=== PATIENT | male | born 1970 | race Caucasian/White ===

== ENCOUNTER 2017-10-14 00:18 | Emergency (ER) | payer OTHER ==
[~2017-10-14] VITALS: Ht 182.9 cm; Wt 157.0 kg
[2017-10-14 00:26] VITALS: TEMP 36.8; Ht 182.9 cm; Wt 157.0 kg
[2017-10-14] MEDS ORDERED: AMOXICILLIN/CLAVULANATE TAB 875 MG TAB PO STA ×2 (00:48)
[2017-10-14] MEDS ORDERED: AMOX875T PO (00:52)
[2017-10-14] MEDS ORDERED: OXYC-57 PO (00:52)
--- NOTE | 2017-10-14 00:59 | EMERGENCY ROOM VISIT NOTE ---
History Report prepared by Marlon: Carmine Cerda Under the Supervision of: Dr. Montana Byrd M.D. First contact with patient: 00:30 Chief Complaint: FINGER PAIN Stated Complaint: SORE FINGER History of Present Illness The patient is a 47 year old male who presents to the Emergency Room with complaints of worsening right fourth finger digit pain starting last night. The patient states that the finger has an eczema blister on it, and he thinks that it got an infection. He states that he is not able to bend it since it makes the pain worse, and he notes that he did not have his finger in anyone's mouth recently. Source of History: patient Onset: last night Position: finger(s) (right fourth finger) Timing: worsening Modifying Factors (Worsening): movement Review of Systems See HPI for pertinent positives & negatives. A total of 10 systems reviewed and were otherwise negative. Past Medical & Surgical Medical Problems: (1) Eczema Social History Smoking Status: Never Smoker Marital Status: Housing Status: lives with family Current/Historical Medications Scheduled Amlodipine (Norvasc), 2.5 MG PO DAILY Amoxicillin & Pot Clavulanate (Augmentin 875-125 mg), 1 TAB PO BID Atorvastatin (Lipitor), 20 MG PO DAILY Hctz/Losartan (Hyzaar 25MG/100MG), 1 TAB PO DAILY Lansoprazole (Prevacid), 30 MG PO DAILY Methylphenidate (Ritalin), 2 TAB PO BID Venlafaxine Hcl (Venlafaxine Extended Rel), 75 MG PO DAILY Scheduled PRN Oxycodone/Acetaminophen 5MG/325MG (Percocet 5MG/325MG), 1-2 TAB PO Q4H PRN for Pain Allergies Coded Allergies: No Known Allergies (Unverified , 10/14/17) Physical Exam Vital Signs Date Time Temp Pulse Resp B/P (MAP) Pulse Ox O2 Delivery O2 Flow Rate FiO2 10/14/17 01:22 91 20 155/97 95 10/14/17 00:26 36.8 74 20 138/95 98 Room Air Physical Exam GENERAL: Patient is a healthy-appearing well-nourished male HEAD: Normocephalic atraumatic EYES: Ocular movements intact pupils equal and react to light OROPHARYNX mucous membranes are moist no exudates present no erythema or edema present NECK: Supple no nuchal rigidity CHEST: Good equal expansion LUNGS: Clear and equal to auscultation CARDIAC: Normal S1 and S2 ABDOMEN: Soft nontender no guarding BACK: No CVA tenderness EXTREMITIES: Two puncture wounds to his fourth right finger that he is calling eczema. Finger is swollen. He is able to bend it. No evidence of toxic tenosynovitis on exam. Normal muscle strength in all groups no clubbing cyanosis or edema NEURO: Patient is following commands and answering questions appropriately. Alert and oriented x3 Cranial Nerves 2-12 grossly intact Medical Decision & Procedures ER Provider Diagnostic Interpretation: X-ray results as stated below per interpretation by me: 3 view of the right fourth finger: No evidence of fracture, dislocation, and subluxation. Soft tissue swelling is present. Medications Administered Medications (Trade) Dose Ordered Sig/Carlos Route Start Time Stop Time Status Last Admin Dose Admin Amoxicillin/ Clavulanate Potassium (Augmentin Tab) 875 mg NOW STAT PO 10/14/17 00:48 10/14/17 00:50 DC 10/14/17 01:13 875 MG Amoxicillin/ Clavulanate Potassium (Augmentin Tab) 875 mg NOW STAT PO 10/14/17 00:48 10/14/17 00:50 DC 10/14/17 01:13 875 MG Oxycodone/ Acetaminophen (Percocet 5/ 325MG Home Pack) 1 homepack UD ONCE PO 10/14/17 01:00 10/14/17 01:01 DC 10/14/17 01:13 1 HOMEPACK ED Course 0030: Past medical records reviewed. The patient was evaluated in room C11. A complete history and physical examination was performed. 0048: Augmentin Tab 875mg PO x2. 0100: Oxycodone/ Acetaminophen Home Pack PO 0115: Upon reexamination the patient is doing well. I discussed results and treatment plan with the patient. He verbalizes agreement and understanding. The patient is ready for discharge. Medical Decision Differential diagnosis: Etiologies such as cellulitis, abscess, MRSA infection, DVT, necrotizing fasciitis, dermatitis, drug eruption, as well as others were entertained. This is a 47-year-old male presents emergency department complaining of worsening finger pain. The patient has no evidence of tenosynovitis on exam. He will be placed on Augmentin. His x-rays do not show any evidence of fracture dislocation or subluxation. He was given ibuprofen as well as Percocet for the pain. The patient is not from this area and I stressed the need for follow-up with orthopedics at home or return to the emergency department if he had worsening pain in his finger. Patient was in agreement with the treatment plan. Medication Reconcilliation Current Medication List: was personally reviewed by me Blood Pressure Screening Patient's blood pressure: Elevated blood pressure Blood pressure disposition: Elevated BP felt to be situational Impression Primary Impression: Cellulitis of finger of right hand Scribe Attestation The scribe's documentation has been prepared under my direction and personally reviewed by me in its entirety. I confirm that the note above accurately reflects all work, treatment, procedures, and medical decision making performed by me. Departure Information Dispostion Home / Self-Care Prescriptions Oxycodone/Acetaminophen 5MG/325MG (PERCOCET 5MG/325MG) Tab 1-2 TAB PO Q4H Y for Pain, #14 TAB Prov: Montana Byrd MD 10/14/17 Amoxicillin & Pot Clavulanate (Augmentin 875-125 mg) 1 Tab Tab 1 TAB PO BID for 10 Days, #20 TAB Prov: Montana Byrd MD 10/14/17 Referrals No Doctor, Assigned (PCP) Forms HOME CARE DOCUMENTATION FORM, IMPORTANT VISIT INFORMATION, WORK / SCHOOL INSTRUCTIONS Patient Instructions Cellulitis - [facility], [facility] Additional Instructions Need close follow up with ortho at home, sy if not improving within 48 hours Take 600 mg Ibuprofen every 6 hours Take Percocet for breakthrough pain You have been examined and treated today on an emergency basis only. This is not a substitute for, or an effort to provide, complete comprehensive medical care. It is impossible to recognize and treat all injuries or illnesses in a single emergency department visit. It is therefore important that you follow up closely with your PCP. Call as soon as possible for an appointment. Thank you for your time and consideration. I look forward to speaking with you again soon. Please don't hesitate to call us if you have any questions.
[2017-10-14] MEDS ORDERED: PERCOCET HOME PACK PO ONE (01:00)
[2017-10-14 01:22] VITALS: BP 155/97; PULSE 91; O2SAT 95
--- NOTE | 2017-10-14 06:19 | DIAGNOSTIC IMAGING REPORT ---
R FINGER(S) MIN 2 VIEWS ROUTINE CLINICAL HISTORY: Pt c/o Rt 4th finger pain COMPARISON: None. DISCUSSION: Small cortical fracture base middle phalanx. This is seen only on the lateral projection. Age is uncertain. AP projection suggests a old fracture of the tuft of the distal phalanx. Generalized soft tissue edema. No evidence of dislocation. IMPRESSION: 1. Old cortical fracture tuft distal phalanx. 2. Small avulsion base middle phalanx of uncertain age. 3. Soft tissue edema. The above report was generated using voice recognition software. It may contain grammatical, syntax or spelling errors. Electronically signed by: Jasper Green M.D. 10/14/2017 6:18 AM Dictated Date/Time: 10/14/2017 6:16 AM
[2017-10-14] MEDS ORDERED: LANS30CA12 PO (14:20)
[2017-10-14] MEDS ORDERED: HYZ/10015 PO (14:20)
[2017-10-14] MEDS ORDERED: ATOR-22 PO (14:20)
[2017-10-14] MEDS ORDERED: AMLO2.5T PO (14:20)
[2017-10-14] MEDS ORDERED: VENL75CA73 PO (14:20)
[2017-10-14] MEDS ORDERED: RTL20 PO (14:20)
[2017-10-18] MEDS ORDERED: LEVO1TAB34 PO (14:47)
[2017-10-18] MEDS ORDERED: SULF800T23 PO (14:47)
[2017-10-18] MEDS ORDERED: MCRK20 PO (14:47)
[2017-10-18] MEDS ORDERED: TRAM-10 PO (14:47)
== END 2017-10-14 01:25 | disposition home or self-care (01) ==
LOC: C.EDB 00:19 → C.EDC 01:25
DX: L03.011 Cellulitis of right finger (principal); L30.9 Dermatitis, unspecified

== ENCOUNTER 2017-10-14 13:17 | Inpatient (IN) | payer OTHER ==
[~2017-10-14] VITALS: Ht 182.9 cm; Wt 154.2 kg
[~2017-10-14 13:17] MED LIST: AMOX875T PO; OXYC-57 PO
[2017-10-14 13:55] LABS: BASO % 0.3 %; BASO ABS # 0.04 K/uL (0-0.2); EOS % 1.3 %; EOS ABS # 0.15 K/uL (0-0.5); HEMATOCRIT 44.1 % (42-52); HEMOGLOBIN 15.7 g/dL (14.0-18.0); IG# 0.06 K/uL (0.00-0.02); LYMPH % 9.7 %; LYMPH ABS # 1.15 K/uL (1.2-3.4); MEAN CELL VOLUME 82.9 fL (80-100); MEAN CORPUSCULAR HEMOGLOBIN 29.5 pg (25-34); MEAN CORPUSCULAR HGB CONC 35.6 g/dl (32-36); MEAN PLATELET VOLUME 10.4 fL (7.4-10.4); MONO % 6.2 %; MONO ABS # 0.73 K/uL (0.11-0.59); PLATELET COUNT 217 K/uL (130-400); RED CELL DISTRIBUTION WIDTH CV 14.1 % (11.5-14.5); RED CELL DISTRIBUTION WIDTH SD 42.8 fL (36.4-46.3); WHITE BLOOD COUNT 11.83 K/uL (4.8-10.8)
[2017-10-14] MEDS ORDERED: CLINDAMYCIN IV 600 MG in DEXTROSE 5% 50ML 50 ML IV STA (14:04)
[2017-10-14] MEDS ORDERED: CEFTRIAXONE SOD INJ 1 GM ADDVIAL IV STA (14:04)
[2017-10-14 14:14] LABS: ALBUMIN 3.7 gm/dl (3.4-5.0); CALCIUM 9.2 mg/dl (8.5-10.1); CREATININE 0.96 mg/dl (0.60-1.40); POTASSIUM 3.4 mmol/L (3.5-5.1)
[2017-10-14 14:17] LABS: TOTAL PROTEIN 7.6 gm/dl (6.4-8.2)
[2017-10-14] MEDS ORDERED: RTL20 PO (14:20)
[2017-10-14] MEDS ORDERED: VENL75CA73 PO (14:20)
[2017-10-14] MEDS ORDERED: HYZ/10015 PO (14:20)
[2017-10-14] MEDS ORDERED: AMLO2.5T PO (14:20)
[2017-10-14] MEDS ORDERED: LANS30CA12 PO (14:20)
[2017-10-14] MEDS ORDERED: ATOR-22 PO (14:20)
--- NOTE | 2017-10-14 16:12 | EMERGENCY ROOM VISIT NOTE ---
History First contact with patient: 13:33 Chief Complaint: FINGER PAIN Stated Complaint: FINGER INFECTED History of Present Illness The patient is a 47 year old male who presents to the Emergency Room with complaints of "finger infected". The patient states that he was seen here about 12 hours ago in the emergency Department for a small infection on his distal right finger. This is of the fourth digit. He states that now the infection has significantly worsened and he has redness extending up to the dorsal aspect of the right hand with edema. It is painful and significantly more warm than previously. He has no fever, chills, nausea or vomiting. Tetanus is unknown. Review of Systems A complete 6-point Review of Systems was discussed with the patient, with pertinent positives and negatives listed in the History of Present Illness. All remaining Review of Systems questions can be considered negative unless otherwise specified. Past Medical/Surgical History Medical Problems: (1) Eczema Social History Smoking Status: Never Smoker Marital Status: Housing Status: lives with family Current/Historical Medications Scheduled Amlodipine (Norvasc), 2.5 MG PO DAILY Amoxicillin & Pot Clavulanate (Augmentin 875-125 mg), 1 TAB PO BID Atorvastatin (Lipitor), 20 MG PO DAILY Hctz/Losartan (Hyzaar 25MG/100MG), 1 TAB PO DAILY Lansoprazole (Prevacid), 30 MG PO DAILY Methylphenidate (Ritalin), 2 TAB PO BID Venlafaxine Hcl (Venlafaxine Extended Rel), 75 MG PO DAILY Scheduled PRN Oxycodone/Acetaminophen 5MG/325MG (Percocet 5MG/325MG), 1-2 TAB PO Q4H PRN for Pain Physical Exam Vital Signs Date Time Temp Pulse Resp B/P (MAP) Pulse Ox O2 Delivery O2 Flow Rate FiO2 10/14/17 17:02 109 16 129/97 95 Room Air 10/14/17 14:52 88 16 123/92 98 Room Air 10/14/17 13:21 36.8 105 18 163/105 98 Room Air Physical Exam VITAL SIGNS - Vital signs and nursing notes were reviewed. Stable. Afebrile. Slightly tachycardic. GENERAL -47-year-old male appearing his stated age who is in no acute distress. Communicates well with provider and answers questions appropriately. SKIN - the right fourth digit does display erythema and significant edema from the distal most aspect extending proximally to almost the wrist. The dorsum of the hand is significantly edematous. HEAD - NC/AT. EXTREMITIES - decreased range of motion of the patient's right fourth digit secondary to edema and pain. He is neurovascularly intact in this region. Medical Decision & Procedures Laboratory Results 10/14/17 13:40 Red Blood Count 5.32, Mean Corpuscular Volume 82.9, Mean Corpuscular Hemoglobin 29.5, Mean Corpuscular Hemoglobin Concent 35.6, Mean Platelet Volume 10.4, Neutrophils (%) (Auto) 82.0, Lymphocytes (%) (Auto) 9.7, Monocytes (%) (Auto) 6.2, Eosinophils (%) (Auto) 1.3, Basophils (%) (Auto) 0.3, Neutrophils # (Auto) 9.70, Lymphocytes # (Auto) 1.15, Monocytes # (Auto) 0.73, Eosinophils # (Auto) 0.15, Basophils # (Auto) 0.04 10/14/17 13:40 Test 10/14/17 13:40 10/14/17 15:25 White Blood Count 11.83 K/uL (4.8-10.8) Red Blood Count 5.32 M/uL (4.7-6.1) Hemoglobin 15.7 g/dL (14.0-18.0) Hematocrit 44.1 % (42-52) Mean Corpuscular Volume 82.9 fL (80-100) Mean Corpuscular Hemoglobin 29.5 pg (25-34) Mean Corpuscular Hemoglobin Concent 35.6 g/dl (32-36) Platelet Count 217 K/uL (130-400) Mean Platelet Volume 10.4 fL (7.4-10.4) Neutrophils (%) (Auto) 82.0 % Lymphocytes (%) (Auto) 9.7 % Monocytes (%) (Auto) 6.2 % Eosinophils (%) (Auto) 1.3 % Basophils (%) (Auto) 0.3 % Neutrophils # (Auto) 9.70 K/uL (1.4-6.5) Lymphocytes # (Auto) 1.15 K/uL (1.2-3.4) Monocytes # (Auto) 0.73 K/uL (0.11-0.59) Eosinophils # (Auto) 0.15 K/uL (0-0.5) Basophils # (Auto) 0.04 K/uL (0-0.2) RDW Standard Deviation 42.8 fL (36.4-46.3) RDW Coefficient of Variation 14.1 % (11.5-14.5) Immature Granulocyte % (Auto) 0.5 % Immature Granulocyte # (Auto) 0.06 K/uL (0.00-0.02) Erythrocyte Sedimentation Rate 15 mm/hr (0-14) Anion Gap 8.0 mmol/L (3-11) Est Creatinine Clear Calc Drug Dose 148.8 ml/min Estimated GFR () 110.2 Estimated GFR (Non- 95.1 BUN/Creatinine Ratio 12.5 (10-20) Calcium Level 9.2 mg/dl (8.5-10.1) Total Bilirubin 0.7 mg/dl (0.2-1) Aspartate Amino Transf (AST/SGOT) 19 U/L (15-37) Alanine Aminotransferase (ALT/SGPT) 47 U/L (12-78) Alkaline Phosphatase 136 U/L (45-117) C-Reactive Protein 2.45 mg/dl (0-0.29) Total Protein 7.6 gm/dl (6.4-8.2) Albumin 3.7 gm/dl (3.4-5.0) Globulin 3.9 gm/dl (2.5-4.0) Albumin/Globulin Ratio 1.0 (0.9-2) Procalcitonin 0.05 ng/ml (0-0.5) Lyme Disease IgG Antibody NEG (NEG) Lyme Disease IgM Antibody NEG (NEG) Lactic Acid Level 2.2 mmol/L (0.4-2.0) Medications Administered Medications (Trade) Dose Ordered Sig/Carlos Route Start Time Stop Time Status Last Admin Dose Admin Ceftriaxone Sodium (Rocephin Inj) 1 gm NOW STAT IV 10/14/17 14:04 10/14/17 14:05 DC 10/14/17 14:50 1 GM Clindamycin Phosphate 600 mg/ Dextrose 54 ml @ 100 mls/hr NOW STAT IV 10/14/17 14:04 10/14/17 14:36 DC 10/14/17 14:20 100 MLS/HR Diphtheria/ Pertussis/Tetanus Vacc (Adacel Inj) 0.5 ml ONCE ONCE IM. 10/14/17 17:45 10/14/17 17:46 DC 10/14/17 17:47 0.5 ML Medical Decision Patient was seen and evaluated as above. He presents to us today with significantly worsening erythema and edema of the right hand in a short period of time (12 hours). IV access was initiated, and the above workup was performed. He had Augmentin earlier. CBC reveals leukocytosis of 11.84. ESR high at 15. Metabolic panel does reveal potassium low at 3.4, no evidence of kidney failure, no evidence of liver failure, with CRP high at 2.45. Previous x -ray was reviewed of osteomyelitis within limitations of x-ray. I did elect to provide clindamycin and Rocephin. Although at this current time the patient's vital signs are stable, and there is no systemic symptoms, the concern is the speed at which the infection is progressing. The patient is right-hand dominant , is traveling from another state without ability to have close family doctor follow-up in the area, and is approaching the weekend. The goal is to help prevent a severe infection of the right hand before it becomes a permanent concern. I did discuss the case with the attending physician, and subsequent to the hospitalist. Please refer to further documentation regarding his stay. Tetanus updated. I believe that the patient will benefit from inpatient admission for IV antibiotics versus oral antibiotics at home given the speed of the infection. In the evaluation and treatment of this patient following differential diagnoses were entertained: Osteomyelitis, cellulitis, tenosynovitis, arthritic reaction, among others. Impression Primary Impression: Cellulitis of finger of right hand Additional Impression: Hypokalemia Departure Information Dispostion Admitted as an inpatient Condition GOOD Referrals No Doctor, Assigned (PCP) Patient Instructions [facility] Health Problem Qualifiers
[2017-10-14] MEDS ORDERED: ONDANSETRON INJ 2 MG/ML 2 ML VIAL IV PRN (16:45)
[2017-10-14] MEDS ORDERED: MAGNESIUM HYDROXIDE SUSP 30 ML UDC PO PRN (16:45)
[2017-10-14] MEDS ORDERED: ALUMINUM/MAGNESIUM/SIMETH (MAALOX MAX) 30 ML UDC PO PRN (16:45)
[2017-10-14] MEDS ORDERED: POLYETHYLENE (MIRALAX) 17 GM PACK PO PRN (16:45)
[2017-10-14] MEDS ORDERED: ACETAMINOPHEN 325 MG TAB PO PRN (16:45)
[2017-10-14] MEDS ORDERED: VANCOMYCIN INJ 2,750 MG in SODIUM CHLORIDE 0.9% 500ML 500 ML IV ONE ×2 (17:00→19:00)
[2017-10-14] MEDS ORDERED: VANCOMYCIN INJ 1,000 MG in SODIUM CHLORIDE 0.9% 250ML 250 ML IV STA (17:06)
--- NOTE | 2017-10-14 17:07 | History and Physical ---
History & Physical Date & Time of Service: Oct 14, 2017 at 17:07 Chief Complaint: Finger Infected Primary Care Physician: No Doctor, Assigned History of Present Illness Source: patient 47 yo M from [place] with medical hx of HTN , hyperlipidemia , ADHD visiting [facility] visit with his Son and 2 days back ( Wednesday ) he had small pimple with itching on the rt hand 4 th finger at interphalangeal joint pt reports he has Eczema , get occasion itching on fingers which some times leads to blisters in next 12 hrs -he had throbbing pain on his finger , with swelling and redness no fever or chills came to ER yesterday was discharged with PO Augmentin and PRN Percocet for pain this morning pain on his finger and swelling progressively increased to midway of his rt hand no fever or chills denies of any tick bite lab shows mild leukocytosis of 11 K , elevated ESR , C reactive protein Lactic acid elevated > 2 pt will be admitted to medical floor for IV Abx and failed out pt treatment Social History Smoking Status: Never Smoker Marital Status: Allergies Coded Allergies: No Known Allergies (Unverified , 10/14/17) Home Medications Scheduled Amlodipine (Norvasc), 2.5 MG PO DAILY Amoxicillin & Pot Clavulanate (Augmentin 875-125 mg), 1 TAB PO BID Atorvastatin (Lipitor), 20 MG PO DAILY Hctz/Losartan (Hyzaar 25MG/100MG), 1 TAB PO DAILY Lansoprazole (Prevacid), 30 MG PO DAILY Methylphenidate (Ritalin), 2 TAB PO BID Venlafaxine Hcl (Venlafaxine Extended Rel), 75 MG PO DAILY Scheduled PRN Oxycodone/Acetaminophen 5MG/325MG (Percocet 5MG/325MG), 1-2 TAB PO Q4H PRN for Pain Review of Systems Constitutional: No fever, No chills, No sweats, No weight loss, No weakness, No fatigue, No problem reported Eyes: No worsening of vision, No eye pain, No redness, No discharge, No diplopia, No problem reported ENT: No hearing loss, No unusual epistaxis, No nasal symptoms, No sore throat, No tinnitus, No dental problems, No trouble swallowing, No problem reported Respiratory: No cough, No sputum, No wheezing, No shortness of breath, No dyspnea on exertion, No dyspnea at rest, No hemoptysis, No problem reported Cardiovascular: No chest pain, No orthopnea, No PND, No edema, No claudication , No palpitations, No problem reported Abdomen: No pain, No nausea, No vomiting, No diarrhea, No constipation, No GI bleeding, No problem reported Musculoskeletal: + problem reported (rt 4th finger pain /swelling /redness ) Neurologic: No memory loss, No paralysis, No weakness, No numbness/tingling, No vertigo, No balance problems, No problem reported Endocrine: No fatigue, No excessive thirst, No excessive urination, No problem reported Physical Exam Vital Signs Date Time Temp Pulse Resp B/P (MAP) Pulse Ox O2 Delivery O2 Flow Rate FiO2 10/14/17 17:02 109 16 129/97 95 Room Air 10/14/17 14:52 88 16 123/92 98 Room Air 10/14/17 13:21 36.8 105 18 163/105 98 Room Air General Appearance: no apparent distress Head: normocephalic, atraumatic Eyes: normal inspection, PERRL, EOMI, sclerae normal ENT: normal ENT inspection Neck: thyroid normal, no JVD, no carotid bruits, trachea midline Respiratory/Chest: lungs clear, normal breath sounds, no respiratory distress Cardiovascular: regular rate, rhythm, no edema, no JVD Abdomen/GI: normal bowel sounds, non tender, soft Extremities/Musculoskelatal: normal inspection, no calf tenderness, normal capillary refill, no pedal edema, + pertinent finding (rt 4th finger swelling / increased warmth/tenderness , extending rt mid hand, no falctuation noted ) Neurologic/Psych: no motor/sensory deficits, alert, oriented x 3 Diagnostics Laboratory Results Results Past 24 Hours Test 10/14/17 13:40 10/14/17 15:25 Range/Units White Blood Count 11.83 4.8-10.8 K/uL Red Blood Count 5.32 4.7-6.1 M/uL Hemoglobin 15.7 14.0-18.0 g/dL Hematocrit 44.1 42-52 % Mean Corpuscular Volume 82.9 80-100 fL Mean Corpuscular Hemoglobin 29.5 25-34 pg Mean Corpuscular Hemoglobin Concent 35.6 32-36 g/dl Platelet Count 217 130-400 K/uL Mean Platelet Volume 10.4 7.4-10.4 fL Neutrophils (%) (Auto) 82.0 % Lymphocytes (%) (Auto) 9.7 % Monocytes (%) (Auto) 6.2 % Eosinophils (%) (Auto) 1.3 % Basophils (%) (Auto) 0.3 % Neutrophils # (Auto) 9.70 1.4-6.5 K/uL Lymphocytes # (Auto) 1.15 1.2-3.4 K/uL Monocytes # (Auto) 0.73 0.11-0.59 K/uL Eosinophils # (Auto) 0.15 0-0.5 K/uL Basophils # (Auto) 0.04 0-0.2 K/uL RDW Standard Deviation 42.8 36.4-46.3 fL RDW Coefficient of Variation 14.1 11.5-14.5 % Immature Granulocyte % (Auto) 0.5 % Immature Granulocyte # (Auto) 0.06 0.00-0.02 K/uL Erythrocyte Sedimentation Rate 15 0-14 mm/hr Sodium Level 138 136-145 mmol/L Potassium Level 3.4 3.5-5.1 mmol/L Chloride Level 106 98-107 mmol/L Carbon Dioxide Level 24 21-32 mmol/L Anion Gap 8.0 3-11 mmol/L Blood Urea Nitrogen 12 7-18 mg/dl Creatinine 0.96 0.60-1.40 mg/dl Est Creatinine Clear Calc Drug Dose 148.8 ml/min Estimated GFR () 110.2 Estimated GFR (Non- 95.1 BUN/Creatinine Ratio 12.5 10-20 Random Glucose 102 70-99 mg/dl Calcium Level 9.2 8.5-10.1 mg/dl Total Bilirubin 0.7 0.2-1 mg/dl Aspartate Amino Transf (AST/SGOT) 19 15-37 U/L Alanine Aminotransferase (ALT/SGPT) 47 12-78 U/L Alkaline Phosphatase 136 45-117 U/L C-Reactive Protein 2.45 0-0.29 mg/dl Total Protein 7.6 6.4-8.2 gm/dl Albumin 3.7 3.4-5.0 gm/dl Globulin 3.9 2.5-4.0 gm/dl Albumin/Globulin Ratio 1.0 0.9-2 Procalcitonin 0.05 0-0.5 ng/ml Lactic Acid Level 2.2 0.4-2.0 mmol/L Microbiology Results 10/14/17 Blood Culture, Ordered Pending 10/14/17 Blood Culture, Ordered Pending Diagnostic Radiology XRAY OF RIGHT FINGER Impression Assessment and Plan RT HAND CELLULITIS : failed out pt therapy started form itching at knuckle of rt hand , pain and swelling gradually increased no evidence of sepsis or systemic infection mild elevation of Lactic acid possible due to dehydration -pt reports as he is travelling , was drinking mainly caffeine beverage ordered for IV fluids Abx with IV vancomycin and Rocephin with clinical improvement can be transitioned to PO Augmentin -pt already have script form the ER HTN : BP stable cont out pt meds HYPERLIPIDEMIA : on stain DEPRESSION /ADHD cont Effexor and Ritalin FULL CODE DVT PROPHYLAXIS : low risk scd and teds ambulate DISPOSITION : wants to finish with Son Buf[place] visit and return to [place] as soon as possible expecting to be discharge tomorrow with oral abx if rt hand cellulitis improves Level of Care Med/Surg Resuscitation Status FULL RESUSCITATION VTE Prophylaxis VTE Risk Assessment Done? Y/N: Yes Risk Level: Moderate Given or contraindicated: T.E.D. Stockings, SCD's
[2017-10-14] MEDS ORDERED: VANCOMYCIN CONSULT ACTIVE PRN ×2 (17:15)
[2017-10-14] MEDS ORDERED: DIPHTHERIA/TETANUS/PERTUSSIS 0.5 ML SYR/VIAL IM. ONE (17:45)
[2017-10-14] MEDS ORDERED: IV FLUIDS COMPLETED PRN (19:00)
[2017-10-14 19:21] VITALS: BP 114/81; PULSE 103; TEMP 37.1; O2SAT 94
[2017-10-14] MEDS: SODIUM CHLORIDE 0.9% 1000ML 1,000 ML IV SCH (19:31)
[2017-10-14] MEDS ORDERED: POTASSIUM CHLORIDE 10 MEQ TABCR PO STA (19:35)
[2017-10-14 20:00] VITALS: BP 114/81; PULSE 103; TEMP 37.1; O2SAT 94; Ht 182.9 cm; Wt 154.2 kg
[2017-10-14] MEDS: METHYLPHENIDATE HCL 10 MG TAB PO SCH (20:00)
[2017-10-14] MEDS ORDERED: VANCOMYCIN INJ 1,000 MG in SODIUM CHLORIDE 0.9% 250ML 250 ML IV SCH (21:00)
[2017-10-14] MEDS: OXYCODONE/ACETAMINOPHEN 5-325 TAB PO PRN (23:53)
[2017-10-15 00:14] VITALS: BP 123/86; PULSE 101; TEMP 36.9; O2SAT 95
[2017-10-15] MEDS: SODIUM CHLORIDE 0.9% 1000ML 1,000 ML IV SCH ×3 (00:45→22:27)
[2017-10-15] MEDS: VANCOMYCIN INJ 1,500 MG in SODIUM CHLORIDE 0.9% 500ML 500 ML IV SCH ×3 (03:43→21:00)
[2017-10-15] MEDS: OXYCODONE/ACETAMINOPHEN 5-325 TAB PO PRN ×3 (03:48→22:36)
[2017-10-15 07:29] LABS: HEMATOCRIT 41.1 % (42-52); HEMOGLOBIN 14.2 g/dL (14.0-18.0); MEAN CELL VOLUME 83.7 fL (80-100); MEAN CORPUSCULAR HEMOGLOBIN 28.9 pg (25-34); MEAN CORPUSCULAR HGB CONC 34.5 g/dl (32-36); PLATELET COUNT 202 K/uL (130-400); RED CELL DISTRIBUTION WIDTH CV 14.4 % (11.5-14.5); WHITE BLOOD COUNT 10.17 K/uL (4.8-10.8)
[2017-10-15 07:45] VITALS: BP 155/82; PULSE 69; TEMP 36.5; O2SAT 95
[2017-10-15 07:55] LABS: CALCIUM 8.6 mg/dl (8.5-10.1); CREATININE 0.93 mg/dl (0.60-1.40); POTASSIUM 3.2 mmol/L (3.5-5.1)
[2017-10-15 08:00] VITALS: O2SAT 95
[2017-10-15] MEDS: METHYLPHENIDATE HCL 10 MG TAB PO SCH ×2 (08:00→20:00)
[2017-10-15] MEDS ORDERED: POTASSIUM CHLORIDE 20 MEQ TABCR PO ONE (08:45)
[2017-10-15] MEDS ORDERED: LOSARTAN POTASSIUM 50 MG TAB PO ONE (08:51)
--- NOTE | 2017-10-15 08:59 | Progress Note ---
Medicine Progress Note Date & Time of Visit: Oct 15, 2017 at 08:52. Subjective sitting up in bed, not in distress states hand pain is about the same hand seems to be more swollen has some limitation with finger movement- same as yesterday denies fever/chills, nausea/vomiting denies other symptoms Objective Last 8 Hrs Date Time Temp Pulse Resp B/P (MAP) Pulse Ox O2 Delivery O2 Flow Rate FiO2 10/15/17 07:45 36.5 69 18 155/82 (106) 95 Room Air Physical Exam: General- oriented x 3, not in distress, speaks in sentences with no effort Head- atraumatic Eyes- anicteric ENT- oropharynx clear Neck- supple, no JVD, no adenopathy, no thyromegaly Lungs- clear breath sounds bilaterally Heart- regular rhythm; no murmur, normal rate Abdomen- normal bowel sounds, soft, nontender Extremities- Right Hand: (+) erythema/edema/warmth on the right ring finger extending to the dorsal aspect of the hand, erythema going beyond the demarcation line that was drawn no pretibial edema, no calf tenderness; peripheral pulses intact Neuro- alert, oriented x 3; no gross focal neurologic deficit Skin- warm & dry Laboratory Results: Last 24 Hours Test 10/14/17 13:40 10/14/17 15:25 10/15/17 07:16 White Blood Count 11.83 K/uL 10.17 K/uL Red Blood Count 5.32 M/uL 4.91 M/uL Hemoglobin 15.7 g/dL 14.2 g/dL Hematocrit 44.1 % 41.1 % Mean Corpuscular Volume 82.9 fL 83.7 fL Mean Corpuscular Hemoglobin 29.5 pg 28.9 pg Mean Corpuscular Hemoglobin Concent 35.6 g/dl 34.5 g/dl Platelet Count 217 K/uL 202 K/uL Mean Platelet Volume 10.4 fL 10.0 fL Neutrophils (%) (Auto) 82.0 % Lymphocytes (%) (Auto) 9.7 % Monocytes (%) (Auto) 6.2 % Eosinophils (%) (Auto) 1.3 % Basophils (%) (Auto) 0.3 % Neutrophils # (Auto) 9.70 K/uL Lymphocytes # (Auto) 1.15 K/uL Monocytes # (Auto) 0.73 K/uL Eosinophils # (Auto) 0.15 K/uL Basophils # (Auto) 0.04 K/uL RDW Standard Deviation 42.8 fL 44.0 fL RDW Coefficient of Variation 14.1 % 14.4 % Immature Granulocyte % (Auto) 0.5 % Immature Granulocyte # (Auto) 0.06 K/uL Erythrocyte Sedimentation Rate 15 mm/hr Sodium Level 138 mmol/L 139 mmol/L Potassium Level 3.4 mmol/L 3.2 mmol/L Chloride Level 106 mmol/L 105 mmol/L Carbon Dioxide Level 24 mmol/L 29 mmol/L Anion Gap 8.0 mmol/L 5.0 mmol/L Blood Urea Nitrogen 12 mg/dl 10 mg/dl Creatinine 0.96 mg/dl 0.93 mg/dl Est Creatinine Clear Calc Drug Dose 148.8 ml/min 153.6 ml/min Estimated GFR () 110.2 114.5 Estimated GFR (Non- 95.1 98.8 BUN/Creatinine Ratio 12.5 10.9 Random Glucose 102 mg/dl 94 mg/dl Calcium Level 9.2 mg/dl 8.6 mg/dl Total Bilirubin 0.7 mg/dl Aspartate Amino Transf (AST/SGOT) 19 U/L Alanine Aminotransferase (ALT/SGPT) 47 U/L Alkaline Phosphatase 136 U/L C-Reactive Protein 2.45 mg/dl Total Protein 7.6 gm/dl Albumin 3.7 gm/dl Globulin 3.9 gm/dl Albumin/Globulin Ratio 1.0 Procalcitonin 0.05 ng/ml Lyme Disease IgG Antibody NEG Lyme Disease IgM Antibody NEG Lactic Acid Level 2.2 mmol/L 1.2 mmol/L Date/Time Source Procedure Growth Status 10/14/17 17:11 Blood Blood Culture Pending Received 10/14/17 17:10 Blood Blood Culture Pending Received Assessment & Plan RIGHT RING FINGER, HAND CELLULITIS failed out pt therapy started form itching at knuckle of rt hand , pain and swelling gradually increased - Xray of the finger: IMPRESSION: 1. Old cortical fracture tuft distal phalanx. 2. Small avulsion base middle phalanx of uncertain age. 3. Soft tissue edema. - increased erythema, edema - afebrile, leukocytosis resolve lactic acidosis resolved - blood cultures pending - change Ceftri to Zosyn continue Vanco - will consult Ortho Hypokalemia - replace and monitor HTN : continue Amlodipine, Losartan hold HCTZ HYPERLIPIDEMIA : on stain DEPRESSION /ADHD cont Effexor and Ritalin FULL CODE DVT PROPHYLAXIS : low risk scd and teds ambulate DISPOSITION : anticipate d/c home when cleared by Ortho Current Inpatient Medications: Current Inpatient Medications Medications (Trade) Dose Ordered Sig/Carlos Route Start Time Stop Time Status Last Admin Dose Admin Amlodipine Besylate (Norvasc Tab) 2.5 mg DAILY PO 10/15/17 08:00 11/14/17 08:59 Atorvastatin Calcium (Lipitor Tab) 20 mg DAILY PO 10/15/17 08:00 11/14/17 08:59 Oxycodone/ Acetaminophen (Percocet 5-325mg Tab) 1 tab Q4H PRN PO 10/14/17 15:15 10/28/17 15:14 10/15/17 03:48 1 TAB Venlafaxine HCl (effeXOR EXTENDED REL CAP) 75 mg DAILY PO 10/15/17 08:00 11/14/17 08:59 Pantoprazole Sodium (Protonix Tab) 40 mg DAILY PO 10/15/17 08:00 11/14/17 08:59 Methylphenidate HCl (Ritalin Tab) 40 mg BID PO 10/14/17 20:00 11/13/17 20:59 Acetaminophen (Tylenol Tab) 650 mg Q4H PRN PO 10/14/17 16:45 11/13/17 16:44 10/14/17 19:32 650 MG Al Hydrox/Mg Hydrox/Simethicone (Maalox Max Susp) 15 ml Q4H PRN PO 10/14/17 16:45 11/13/17 16:44 Magnesium Hydroxide (Milk Of Magnesia Susp) 30 ml Q6H PRN PO 10/14/17 16:45 11/13/17 16:44 Polyethylene (Miralax Powder Packet) 17 gm DAILY PRN PO 10/14/17 16:45 11/13/17 16:44 Ondansetron HCl (Zofran Inj) 4 mg Q6H PRN IV 10/14/17 16:45 11/13/17 16:44 Sodium Chloride 1,000 ml @ 125 mls/hr Q8H IV 10/14/17 16:45 11/13/17 16:44 10/14/17 19:31 125 MLS/HR Miscellaneous Information (Consult) 1 ea UD PRN N/A 10/14/17 17:15 11/13/17 17:14 Miscellaneous (Iv Fluids Completed) 1 ea PRN PRN N/A 10/14/17 19:00 10/14/18 18:59 Vancomycin HCl 1500 mg/Sodium Chloride 530 ml @ 200 mls/hr Q8H IV 10/15/17 04:00 10/25/17 03:59 10/15/17 03:43 200 MLS/HR Potassium Chloride (Klor-Con Tab) 40 meq DAILY PO 10/16/17 08:00 11/15/17 07:59 Miscellaneous Information (Pharmacy Consult) 1 ea NOW STAT N/A 10/15/17 08:44 10/15/17 08:45 UNV
[2017-10-15] MEDS ORDERED: PIPERACILL/TAZOBAC CONSULT ACTIVE SCH (09:02)
[2017-10-15] MEDS ORDERED: PIPERACILL/TAZOBAC IV 4.5 GM in DEXTROSE 5% 100ML IV ONE (09:30)
[2017-10-15] MEDS: ATORVASTATIN 20 MG TAB PO SCH (09:41)
[2017-10-15] MEDS: AMLODIPINE BESYLATE 5 MG TAB PO SCH (09:42)
[2017-10-15] MEDS: PANTOprazole SOD 40 MG TAB PO SCH (09:43)
[2017-10-15] MEDS: VENLAFAXINE HCL XR 75 MG CAPXR PO SCH (09:44)
[2017-10-15] MEDS ORDERED: GADAVIST IV PRN (14:15)
--- NOTE | 2017-10-15 14:45 | DIAGNOSTIC IMAGING REPORT ---
RIGHT HAND MRI HISTORY: Right hand swelling. r/o abscess right hand; r/o 4th PIP joint infection TECHNIQUE: Multiplanar multisequence MRI of the right hand was performed both before and after the intravenous administration of contrast. COMPARISON STUDY: Right fourth finger 10/14/2017. FINDINGS: There is extensive subcutaneous edema and enhancement along the dorsum of the hand from the second through fourth metacarpals. This extends proximally into the wrist and distally into the fingers. This is most pronounced within the right finger. There is also fluid and enhancement surrounding the extensor digitorum tendons within the hand and fourth finger. This is consistent with a tenosynovitis. The deep subcutaneous fluid within the dorsum of the hand does not demonstrate a well-defined wall. Therefore, no evidence fracture site this time. Normal marrow signal intensity seen throughout the visualized osseous structures. No evidence for osteomyelitis. IMPRESSION: 1. Extensive subcutaneous edema and enhancement within the dorsum of the wrist, hand, and fingers most pronounced within the right ring finger. This is consistent with a cellulitis. 2. No abscess identified. 3. No evidence for osteomyelitis. 4. There is also fluid and enhancement surrounding the extensor digitorum tendons within the hand and fourth finger. This is consistent with a tenosynovitis and could represent an infectious tenosynovitis Electronically signed by: Travis Mann M.D. 10/15/2017 2:43 PM Dictated Date/Time: 10/15/2017 2:34 PM
[2017-10-15] MEDS ORDERED: CEFTRIAXONE SOD INJ 1 GM in DEXTROSE 5% ADD-VANTAGE 50ML 50 ML IV SCH (15:00)
--- NOTE | 2017-10-15 15:15 | Orthopedic Consultation ---
Orthopedic Consultation Date of Consultation: Oct 15, 2017. Attending Physician: Markus Mayfield MD Reason for Consultation: Right fourth digit erythema and swelling History of Present Illness The patient is a 47-year-old male who had region of eczema on the ulnar border of the PIP joint. He scratched this area thought it looked a little bit like. He had some increasing redness and swelling in locally and was seen at the ER on Wednesday. Despite antibiotics he had increasing erythema pain and swelling difficulty in bending the PIP joint and presented to the hospital yesterday. He was placed on IV antibiotic therapy and has not really had any improvement in his pain if anything things have worsened a little bit. Denies any acute trauma. Denies previous difficulties with this kind of condition. Past Medical/Surgical History Medical Problems: (1) Cellulitis of finger of right hand Status: Acute (2) Hypokalemia Status: Acute Social History Smoking Status: Never Smoker Marital Status: Housing Status: lives with family Allergies Coded Allergies: No Known Allergies (Unverified , 10/14/17) Home Medications Scheduled Amlodipine (Norvasc), 2.5 MG PO DAILY Amoxicillin & Pot Clavulanate (Augmentin 875-125 mg), 1 TAB PO BID Atorvastatin (Lipitor), 20 MG PO DAILY Hctz/Losartan (Hyzaar 25MG/100MG), 1 TAB PO DAILY Lansoprazole (Prevacid), 30 MG PO DAILY Methylphenidate (Ritalin), 2 TAB PO BID Venlafaxine Hcl (Venlafaxine Extended Rel), 75 MG PO DAILY Scheduled PRN Oxycodone/Acetaminophen 5MG/325MG (Percocet 5MG/325MG), 1-2 TAB PO Q4H PRN for Pain Current Inpatient Medications Current Inpatient Medications Medications (Trade) Dose Ordered Sig/Carlos Route Start Time Stop Time Status Last Admin Dose Admin Amlodipine Besylate (Norvasc Tab) 2.5 mg DAILY PO 10/15/17 08:00 11/14/17 08:59 10/15/17 09:42 2.5 MG Atorvastatin Calcium (Lipitor Tab) 20 mg DAILY PO 10/15/17 08:00 11/14/17 08:59 10/15/17 09:41 20 MG Oxycodone/ Acetaminophen (Percocet 5-325mg Tab) 1 tab Q4H PRN PO 10/14/17 15:15 10/28/17 15:14 10/15/17 09:49 1 TAB Venlafaxine HCl (effeXOR EXTENDED REL CAP) 75 mg DAILY PO 10/15/17 08:00 11/14/17 08:59 10/15/17 09:44 75 MG Pantoprazole Sodium (Protonix Tab) 40 mg DAILY PO 10/15/17 08:00 11/14/17 08:59 10/15/17 09:43 40 MG Methylphenidate HCl (Ritalin Tab) 40 mg BID PO 10/14/17 20:00 11/13/17 20:59 Acetaminophen (Tylenol Tab) 650 mg Q4H PRN PO 10/14/17 16:45 11/13/17 16:44 10/14/17 19:32 650 MG Al Hydrox/Mg Hydrox/Simethicone (Maalox Max Susp) 15 ml Q4H PRN PO 10/14/17 16:45 11/13/17 16:44 Magnesium Hydroxide (Milk Of Magnesia Susp) 30 ml Q6H PRN PO 10/14/17 16:45 11/13/17 16:44 Polyethylene (Miralax Powder Packet) 17 gm DAILY PRN PO 10/14/17 16:45 11/13/17 16:44 Ondansetron HCl (Zofran Inj) 4 mg Q6H PRN IV 10/14/17 16:45 11/13/17 16:44 Sodium Chloride 1,000 ml @ 125 mls/hr Q8H IV 10/14/17 16:45 11/13/17 16:44 10/15/17 09:43 125 MLS/HR Miscellaneous Information (Consult) 1 ea UD PRN N/A 10/14/17 17:15 11/13/17 17:14 Miscellaneous (Iv Fluids Completed) 1 ea PRN PRN N/A 10/14/17 19:00 10/14/18 18:59 Vancomycin HCl 1500 mg/Sodium Chloride 530 ml @ 200 mls/hr Q8H IV 10/15/17 04:00 10/25/17 03:59 10/15/17 14:22 200 MLS/HR Potassium Chloride (Klor-Con Tab) 40 meq DAILY PO 10/16/17 08:00 11/15/17 07:59 Miscellaneous Information (Consult) 1 ea UD N/A 10/15/17 09:02 11/14/17 09:01 Losartan Potassium (coZAAR TAB) 100 mg QAM PO 10/16/17 08:00 11/15/17 07:59 Piperacillin Sod/ Tazobactam Sod 4.5 gm/Dextrose 120 ml @ 30 mls/hr Q8H IV 10/15/17 18:00 10/25/17 05:59 Gadobutrol (Gadavist) 15 mmol UD PRN IV 10/15/17 14:15 10/19/17 14:14 UNV Review of Systems Constitutional: No fever, No chills, No sweats Physical Exam Date Time Temp Pulse Resp B/P (MAP) Pulse Ox O2 Delivery O2 Flow Rate FiO2 10/15/17 08:00 95 Room Air 10/15/17 07:45 36.5 69 18 155/82 (106) 95 Room Air 10/15/17 00:14 36.9 101 20 123/86 (98) 95 Room Air 10/15/17 00:00 Room Air 10/14/17 20:00 37.1 103 16 114/81 94 Room Air 10/14/17 19:21 37.1 103 16 114/81 (92) 94 Room Air 10/14/17 17:02 109 16 129/97 95 Room Air Right-hand: There is significant erythema over the PIP joint of the right ring finger. There is a small scab over the lateral aspect of the digit near the PIP joint. He has decreased range of motion of this joint to about 20. No tenderness along the volar aspect of the finger. No tenderness along the palm. He is some mild erythema going over the dorsum of the hand. Minimal tenderness over the dorsum of the hand is fairly significant tenderness over the dorsum of the PIP joint. Passive motion doesn't give him much pain with extension but with passive flexion he has pain. General Appearance: WD/WN Head: normocephalic Eyes: normal inspection ENT: normal ENT inspection Neck: supple Respiratory/Chest: chest non-tender Cardiovascular: no edema Laboratory Results Last 24 Hours Test 10/14/17 15:25 10/15/17 07:16 Lactic Acid Level 2.2 mmol/L 1.2 mmol/L White Blood Count 10.17 K/uL Red Blood Count 4.91 M/uL Hemoglobin 14.2 g/dL Hematocrit 41.1 % Mean Corpuscular Volume 83.7 fL Mean Corpuscular Hemoglobin 28.9 pg Mean Corpuscular Hemoglobin Concent 34.5 g/dl RDW Standard Deviation 44.0 fL RDW Coefficient of Variation 14.4 % Platelet Count 202 K/uL Mean Platelet Volume 10.0 fL Sodium Level 139 mmol/L Potassium Level 3.2 mmol/L Chloride Level 105 mmol/L Carbon Dioxide Level 29 mmol/L Anion Gap 5.0 mmol/L Blood Urea Nitrogen 10 mg/dl Creatinine 0.93 mg/dl Est Creatinine Clear Calc Drug Dose 153.6 ml/min Estimated GFR () 114.5 Estimated GFR (Non- 98.8 BUN/Creatinine Ratio 10.9 Random Glucose 94 mg/dl Calcium Level 8.6 mg/dl Assessment & Plan Right ring finger extensor tenosynovitis possible involvement of the PIP joint MRI demonstrates soft tissue swelling in the region of concern. There is also fluid around the extensor tendon sheath consistent with tenosynovitis. I don't appreciate a lot of joint fluid in the PIP joint but is possible he does have an infectious process going on in there. He has filled IV antibiotic therapy and would likely benefit from irrigation and debridement. We'll make him nothing by mouth after midnight tonight and plan on this for tomorrow morning.
[2017-10-15 16:02] VITALS: BP 137/89; PULSE 74; TEMP 36.8; O2SAT 97
[2017-10-15] MEDS: PIPERACILL/TAZOBAC IV 4.5 GM in DEXTROSE 5% 100ML IV SCH (18:29)
[2017-10-15] MEDS ORDERED: VANCOMYCIN TROUGH ONE (19:30)
--- NOTE | 2017-10-15 20:50 | Pharmacy Progress Note ---
Pharmacy Abx Dose Short Note Date of Service Oct 15, 2017. Assessment & Plan Assessment 47 year old male receiving Vancomycin and zosyn for treatment of hand cellulitis. Day # 2 of Vancomycin, Day #1 of Zosyn. Item Value Date Time Vancomycin Level Trough 19.4 mcg/ml 10/15/171933 Blood cultures pending. Plan Vancomycin * Trough level of 19.4 mcg/mL is therapeutic, though previous dose was hung 2 hours late. * Trough is also not reflective of steady state. * Will continue dose of 1500 mg IV every 8 hours for now * Trough level ordered for: 10/17@1130 as patient BMI=46 and is likely to accumulate. * Goal trough level for cellulitis ~15 mcg/mL Pharmacy will continue to follow and will adjust dose/frequency as necessary. Thank you.
[2017-10-15 23:53] VITALS: BP 146/84; PULSE 80; TEMP 37; O2SAT 98
[2017-10-16] VITALS (8 sets, daily range): BP systolic 107–128; BP diastolic 71–85; PULSE 79–109; TEMP 36.5–36.9; O2SAT 95–98
[2017-10-16] MEDS: PIPERACILL/TAZOBAC IV 4.5 GM in DEXTROSE 5% 100ML IV SCH ×3 (02:15→18:17)
[2017-10-16] MEDS: VANCOMYCIN INJ 1,500 MG in SODIUM CHLORIDE 0.9% 500ML 500 ML IV SCH ×3 (04:48→21:14)
[2017-10-16] MEDS: SODIUM CHLORIDE 0.9% 1000ML 1,000 ML IV SCH ×3 (06:20→21:14)
[2017-10-16 06:42] LABS: BASO % 0.4 %; BASO ABS # 0.04 K/uL (0-0.2); EOS % 2.6 %; EOS ABS # 0.24 K/uL (0-0.5); HEMATOCRIT 41.5 % (42-52); HEMOGLOBIN 14.4 g/dL (14.0-18.0); IG# 0.04 K/uL (0.00-0.02); LYMPH % 19.5 %; MEAN CELL VOLUME 83.7 fL (80-100); MEAN CORPUSCULAR HGB CONC 34.7 g/dl (32-36); MEAN PLATELET VOLUME 10.2 fL (7.4-10.4); MONO % 6.5 %; NEUT % 70.6 %; NEUT ABS # 6.52 K/uL (1.4-6.5); PLATELET COUNT 212 K/uL (130-400); RED CELL DISTRIBUTION WIDTH CV 14.4 % (11.5-14.5); RED CELL DISTRIBUTION WIDTH SD 44.1 fL (36.4-46.3); WHITE BLOOD COUNT 9.24 K/uL (4.8-10.8)
[2017-10-16 07:06] LABS: CALCIUM 8.5 mg/dl (8.5-10.1); POTASSIUM 3.5 mmol/L (3.5-5.1)
[2017-10-16] MEDS: LOSARTAN POTASSIUM 50 MG TAB PO SCH (07:41)
[2017-10-16] MEDS: AMLODIPINE BESYLATE 5 MG TAB PO SCH (07:41)
[2017-10-16] MEDS: METHYLPHENIDATE HCL 10 MG TAB PO SCH ×2 (08:00→20:00)
[2017-10-16] MEDS ORDERED: BACITRACIN 50000 UNIT VIAL ONE (09:35)
[2017-10-16] MEDS ORDERED: LIDOCAINE HCL 2% 2 ML VIAL (20MG/ML) ONE (09:38)
[2017-10-16] MEDS ORDERED: PROPOFOL IV EMULSION 10 MG/ML 20 ML VIAL IV ONE ×2 (09:38→10:27)
[2017-10-16] MEDS ORDERED: SUCCINYLCHOLINE CHLORIDE 20 MG/ML 10 ML VIAL IV ONE (09:38)
[2017-10-16] MEDS ORDERED: DEXAMETHASONE SOD INJ 4 MG/ML VIAL ONE (09:38)
[2017-10-16] MEDS ORDERED: ONDANSETRON INJ 2 MG/ML 2 ML VIAL ONE (09:38)
[2017-10-16] MEDS ORDERED: MIDAZOLAM HCL 1 MG/ML 2ML VIAL ONE (09:39)
[2017-10-16] MEDS ORDERED: FENTANYL CITRATE INJ 50 MCG/1 ML 2 ML VIAL ONE ×2 (09:39→10:25)
--- NOTE | 2017-10-16 10:03 | History & Physical Bridge Note ---
H&P Re-Evaluation Bridge Note: I have examined the patient, reviewed the History & Physical and in the interval since the performance of the History & Physical I have noted the following changes of clinical significance: No changes noted
[2017-10-16] MEDS ORDERED: ONDANSETRON INJ 2 MG/ML 2 ML VIAL IV PRN (10:15)
[2017-10-16] MEDS ORDERED: PROMETHAZINE HCL INJ 12.5 MG in SODIUM CHLORIDE 0.9% 50ML 50 ML IV PRN (10:15)
[2017-10-16] MEDS ORDERED: ATROPINE SULFATE 0.1 MG/ML 5ML SYR IV PRN (10:15)
[2017-10-16] MEDS ORDERED: EpHEDrine SULFATE INJ 50 MG/ML AMP IV PRN (10:15)
[2017-10-16] MEDS ORDERED: HYDROmorphone INJ 0.5 MG/0.5 ML SYR IV PRN (10:15)
[2017-10-16] MEDS ORDERED: FENTANYL CITRATE INJ 50 MCG/1 ML 2 ML VIAL IV PRN (10:15)
[2017-10-16] MEDS ORDERED: BUPIVACAINE 0.25% 30 ML VIAL ONE (10:21)
[2017-10-16] MEDS ORDERED: PHENYLEPHRINE HCL INJ 10 MG/ML VIAL ONE (10:48)
[2017-10-16] MEDS ORDERED: EpHEDrine SULFATE 50MG/5ML SYR ONE (10:48)
--- NOTE | 2017-10-16 11:16 | [facility] Post Operative Brief Note ---
Immediate Operative Summary Operative Date Oct 16, 2017. Pre-Operative Diagnosis Right Ring Finger Extensor Tenosynosvitis Post-Operative Diagnosis Right Ring Finger Extensor Tenosynosvitis and septic joint Procedure(s) Performed Incision and Drainage Right 4th Ring Finger extensor tendon and PIP joint Surgeon Electronic Page Makeup System Operator Surgeon(s) None Estimated Blood Loss 2ML Findings Consistent with Post-Op Diagnosis Specimens Cultures: 1. Right Ring Finger Tissue: Culture and Sensitivity, Gram stain 2. Extensor Tendon Shealth Right Ring Finger : Culture and Sensitivity , Anerobic, Gram stain Drains None Anesthesia Type General Complication(s) none Disposition Disposition: Recovery Room / PACU
--- NOTE | 2017-10-16 11:42 | [facility] Operative Report ---
Operative Report Operative Date Oct 16, 2017. Pre-Operative Diagnosis Right Ring Finger Extensor Tenosynosvitis Post-Operative Diagnosis Right Ring Finger Extensor Tenosynosvitis and septic joint Procedure(s) Performed Incision and Drainage Right 4th Ring Finger extensor tendon and PIP joint Surgeon Medical Officer Surgeon(s) None Estimated Blood Loss 2ML Specimens Cultures: 1. Right Ring Finger Tissue: Culture and Sensitivity, Gram stain 2. Extensor Tendon Shealth Right Ring Finger : Culture and Sensitivity , Anerobic, Gram stain Drains None Anesthesia Type General Complication(s) none Disposition Recovery Room / PACU Indications The patient is a 47-year-old male who had a pimple over the lateral aspect of the MP joint of the ring finger. He was initially treated with by mouth antibiotics and this failed. He is admitted for IV antibiotic therapy and have progression of the redness swelling. MRI the region demonstrated fluid within the extensor tendon sheath. Failing conservative measures he presents for irrigation debridement. Description of Procedure Risks, benefits and alternatives to surgery including, but not limited to, infection, DVT, pain, stiffness, need for revision surgery, failure to relieve all symptoms, damage to blood vessels, damage to nerves, risk of the anesthesia were discussed with the patient and they wished to proceed. The patient was identified. Laterality was confirmed and marked. The patient received a preoperative antibiotic. They were transferred to the operating room and placed in supine position and induced into general endotracheal anesthesia per the anesthesia staff. A well-padded tourniquet was placed on the arm and the limb was prepped and draped in the usual standard manner with ChloraPrep. The tourniquet was inflated. I then made a longitudinal incision over the ulnar side of the PIP joint of the ring finger of the right hand. This is where his initial wounds were. There was some questionable bloody type material over the revision extensor tendons. This was sent for tissue culture and then debrided sharply with a knife as well as with a rongeur. I then palpated the PIP joint and it felt like there is fluid within the PIP joint. Made a longitudinal incision into the joint capsule and there was a fair amount of fluid expressed from the joint. This joint fluid was cultured. I then used an Angiocath to irrigate both the joint as well as the extensor tendon sheath. The wound was then closed with interrupted 4-0 nylon. A sterile dressing was applied and the tourniquet was released. All needle and sponge counts were correct at the end of the procedure. The patient was transferred to the PACU in stable condition without apparent complication. I attest to the content of the Intraoperative Record and any orders documented therein. Any exceptions are noted below.
--- NOTE | 2017-10-16 12:29 | Anesthesiology Progress Note ---
Anesthesia Post Op Note Date & Time Oct 16, 2017 at 12:29 Vital Signs Pain Intensity: 0 Vital Signs Past 12 Hours Date Time Temp Pulse Resp B/P (MAP) Pulse Ox O2 Delivery O2 Flow Rate FiO2 10/16/17 12:20 102 18 118/82 98 Nasal Cannula 2 10/16/17 12:10 36.2 102 18 124/82 98 Nasal Cannula 2 10/16/17 12:00 36.2 99 18 110/86 98 Nasal Cannula 2 10/16/17 11:50 36.2 105 18 123/81 96 Nasal Cannula 2 10/16/17 11:40 105 18 114/84 100 Nasal Cannula 2 10/16/17 11:30 106 18 111/78 98 Oxymask 10 10/16/17 11:24 103 18 118/88 100 Oxymask 10 10/16/17 11:18 36.1 118 18 120/81 100 Oxymask 10 10/16/17 08:00 Room Air 10/16/17 07:22 36.5 79 17 128/74 (92) 95 Room Air Notes Mental Status: alert / awake / arousable, participated in evaluation Pt Amnestic to Procedure: Yes Nausea / Vomiting: adequately controlled Pain: adequately controlled Airway Patency, RR, SpO2: stable & adequate BP & HR: stable & adequate Hydration State: stable & adequate Anesthetic Complications: no major complications apparent
[2017-10-16] MEDS: KETOROLAC TROMETHAMINE 30 MG/ML VIAL IV. SCH ×3 (13:30→23:49)
[2017-10-16] MEDS: ATORVASTATIN 20 MG TAB PO SCH (13:31)
[2017-10-16] MEDS: VENLAFAXINE HCL XR 75 MG CAPXR PO SCH (13:31)
[2017-10-16] MEDS: PANTOprazole SOD 40 MG TAB PO SCH (13:31)
[2017-10-16] MEDS: POTASSIUM CHLORIDE 20 MEQ TABCR PO SCH (13:31)
[2017-10-17 00:12] VITALS: BP 111/76; PULSE 104; TEMP 37.1; O2SAT 95
[2017-10-17] MEDS: PIPERACILL/TAZOBAC IV 4.5 GM in DEXTROSE 5% 100ML IV SCH ×3 (01:38→18:35)
[2017-10-17] MEDS: VANCOMYCIN INJ 1,500 MG in SODIUM CHLORIDE 0.9% 500ML 500 ML IV SCH ×3 (03:41→21:28)
[2017-10-17] MEDS: KETOROLAC TROMETHAMINE 30 MG/ML VIAL IV. SCH (05:43)
--- NOTE | 2017-10-17 05:49 | Progress Note ---
Medicine Progress Note Date & Time of Visit: Oct 17, 2017 at 05:43. Subjective delayed entry date of service 10/16/17 seen resting in bed, comfortable, in good spirits s/p I and D today states right hand pain is better denies fever/chills no chest pain, dyspnea, palpitations, dizziness no other symptoms Objective Last 8 Hrs Date Time Temp Pulse Resp B/P (MAP) Pulse Ox O2 Delivery O2 Flow Rate FiO2 10/17/17 00:12 37.1 104 18 111/76 (88) 95 Room Air 10/17/17 00:00 Room Air Physical Exam: General- oriented x 3, not in distress, speaks in sentences with no effort Eyes- anicteric Neck- supple, no JVD Lungs- clear breath sounds bilaterally Heart- regular rhythm; no murmur, normal rate Abdomen- normal bowel sounds, soft, nontender Extremities- Right Hand: right hand with heavy dressing less erythema on the dorsum can move all fingers well no pretibial edema, no calf tenderness Neuro- alert, oriented x 3; no gross focal neurologic deficit Skin- warm & dry Laboratory Results: Last 24 Hours Test 10/16/17 05:57 10/17/17 04:44 White Blood Count 9.24 K/uL Red Blood Count 4.96 M/uL Hemoglobin 14.4 g/dL Hematocrit 41.5 % Mean Corpuscular Volume 83.7 fL Mean Corpuscular Hemoglobin 29.0 pg Mean Corpuscular Hemoglobin Concent 34.7 g/dl Platelet Count 212 K/uL Mean Platelet Volume 10.2 fL Neutrophils (%) (Auto) 70.6 % Lymphocytes (%) (Auto) 19.5 % Monocytes (%) (Auto) 6.5 % Eosinophils (%) (Auto) 2.6 % Basophils (%) (Auto) 0.4 % Neutrophils # (Auto) 6.52 K/uL Lymphocytes # (Auto) 1.80 K/uL Monocytes # (Auto) 0.60 K/uL Eosinophils # (Auto) 0.24 K/uL Basophils # (Auto) 0.04 K/uL RDW Standard Deviation 44.1 fL RDW Coefficient of Variation 14.4 % Immature Granulocyte % (Auto) 0.4 % Immature Granulocyte # (Auto) 0.04 K/uL Sodium Level 141 mmol/L Potassium Level 3.5 mmol/L Chloride Level 109 mmol/L Carbon Dioxide Level 24 mmol/L Anion Gap 8.0 mmol/L Blood Urea Nitrogen 8 mg/dl Creatinine 1.00 mg/dl Est Creatinine Clear Calc Drug Dose 142.8 ml/min Estimated GFR () 104.9 Estimated GFR (Non- 90.5 BUN/Creatinine Ratio 8.5 Random Glucose 105 mg/dl Calcium Level 8.5 mg/dl Date/Time Source Procedure Growth Status 10/16/17 10:46 Drainage-Deep Finger , Right 3rd Gram Stain - Final Resulted 10/16/17 10:46 Drainage-Deep Finger , Right 3rd Bacterial Culture Pending Resulted 10/16/17 10:45 Tissue Finger , Right 3rd Gram Stain - Final Resulted 10/16/17 10:45 Tissue Finger , Right 3rd Bacterial Culture Pending Resulted Assessment & Plan RIGHT RING FINGER, HAND CELLULITIS failed out pt therapy started form itching at knuckle of rt hand , pain and swelling gradually increased - Xray of the finger: IMPRESSION: 1. Old cortical fracture tuft distal phalanx. 2. Small avulsion base middle phalanx of uncertain age. 3. Soft tissue edema. - s/p I&D 10/16/17 Drainage cultures: pending - afebrile, leukocytosis resolved lactic acidosis resolved - blood cultures negaive - continue Vanco and ZOsyn - appreciate Ortho Consult Hypokalemia - replaced and monitor HTN : continue Amlodipine, Losartan hold HCTZ HYPERLIPIDEMIA : on stain DEPRESSION /ADHD cont Effexor and Ritalin FULL CODE DVT PROPHYLAXIS : low risk scd and teds ambulate DISPOSITION : anticipate d/c home when cleared by Ortho Current Inpatient Medications: Current Inpatient Medications Medications (Trade) Dose Ordered Sig/Carlos Route Start Time Stop Time Status Last Admin Dose Admin Amlodipine Besylate (Norvasc Tab) 2.5 mg DAILY PO 10/15/17 08:00 11/14/17 08:59 10/16/17 07:41 2.5 MG Atorvastatin Calcium (Lipitor Tab) 20 mg DAILY PO 10/15/17 08:00 11/14/17 08:59 10/16/17 13:31 20 MG Oxycodone/ Acetaminophen (Percocet 5-325mg Tab) 1 tab Q4H PRN PO 10/14/17 15:15 10/28/17 15:14 10/15/17 22:36 1 TAB Venlafaxine HCl (effeXOR EXTENDED REL CAP) 75 mg DAILY PO 10/15/17 08:00 11/14/17 08:59 10/16/17 13:31 75 MG Pantoprazole Sodium (Protonix Tab) 40 mg DAILY PO 10/15/17 08:00 11/14/17 08:59 10/16/17 13:31 40 MG Methylphenidate HCl (Ritalin Tab) 40 mg BID PO 10/14/17 20:00 11/13/17 20:59 Acetaminophen (Tylenol Tab) 650 mg Q4H PRN PO 10/14/17 16:45 11/13/17 16:44 10/14/17 19:32 650 MG Al Hydrox/Mg Hydrox/Simethicone (Maalox Max Susp) 15 ml Q4H PRN PO 10/14/17 16:45 11/13/17 16:44 Magnesium Hydroxide (Milk Of Magnesia Susp) 30 ml Q6H PRN PO 10/14/17 16:45 11/13/17 16:44 Polyethylene (Miralax Powder Packet) 17 gm DAILY PRN PO 10/14/17 16:45 11/13/17 16:44 Ondansetron HCl (Zofran Inj) 4 mg Q6H PRN IV 10/14/17 16:45 11/13/17 16:44 Sodium Chloride 1,000 ml @ 125 mls/hr Q8H IV 10/14/17 16:45 11/13/17 16:44 10/16/17 21:14 125 MLS/HR Miscellaneous Information (Consult) 1 ea UD PRN N/A 10/14/17 17:15 11/13/17 17:14 Miscellaneous (Iv Fluids Completed) 1 ea PRN PRN N/A 10/14/17 19:00 10/14/18 18:59 Vancomycin HCl 1500 mg/Sodium Chloride 530 ml @ 200 mls/hr Q8H IV 10/15/17 04:00 10/25/17 03:59 10/17/17 03:41 200 MLS/HR Potassium Chloride (Klor-Con Tab) 40 meq DAILY PO 10/16/17 08:00 11/15/17 07:59 10/16/17 13:31 40 MEQ Miscellaneous Information (Consult) 1 ea UD N/A 10/15/17 09:02 11/14/17 09:01 Losartan Potassium (coZAAR TAB) 100 mg QAM PO 10/16/17 08:00 11/15/17 07:59 10/16/17 07:41 100 MG Piperacillin Sod/ Tazobactam Sod 4.5 gm/Dextrose 120 ml @ 30 mls/hr Q8H IV 10/15/17 18:00 10/25/17 05:59 10/17/17 01:38 30 MLS/HR Gadobutrol (Gadavist) 15 mmol UD PRN IV 10/15/17 14:15 10/19/17 14:14 Ketorolac Tromethamine (Toradol Inj) 30 mg Q6H IV. 10/16/17 12:00 10/17/17 06:01 10/16/17 23:49 30 MG
[2017-10-17 07:53] VITALS: BP 143/99; PULSE 84; TEMP 36.6; O2SAT 98
[2017-10-17 08:13] LABS: HEMOGLOBIN 13.4 g/dL (14.0-18.0); MEAN CELL VOLUME 84.4 fL (80-100); MEAN CORPUSCULAR HGB CONC 34.4 g/dl (32-36); MEAN PLATELET VOLUME 9.9 fL (7.4-10.4); PLATELET COUNT 225 K/uL (130-400); RED CELL DISTRIBUTION WIDTH CV 14.5 % (11.5-14.5); RED CELL DISTRIBUTION WIDTH SD 44.9 fL (36.4-46.3); WHITE BLOOD COUNT 13.28 K/uL (4.8-10.8)
[2017-10-17 08:50] LABS: CALCIUM 8.4 mg/dl (8.5-10.1); CREATININE 0.91 mg/dl (0.60-1.40); POTASSIUM 3.7 mmol/L (3.5-5.1)
--- NOTE | 2017-10-17 09:16 | Orthopedic Progress Note ---
Orthopedic Progress Note Date of Service Oct 17, 2017. Subjective Post OP Day: 1 Reports: feeling well, pain controlled w PO medications, Denies: complaints Additional Notes: States the hand/finger feels significantly better since the procedure yesterday. Noticed improvement in pain immediately post operatively. No complaints today. Objective Date Time Temp Pulse Resp B/P (MAP) Pulse Ox O2 Delivery O2 Flow Rate FiO2 10/17/17 07:53 36.6 84 22 143/99 (114) 98 Room Air 10/17/17 00:12 37.1 104 18 111/76 (88) 95 Room Air 10/17/17 00:00 Room Air 10/16/17 16:00 96 Room Air 10/16/17 15:42 100 10/16/17 14:10 36.5 109 20 107/71 (83) 10/16/17 13:25 36.7 106 20 112/79 (90) 96 Room Air 10/16/17 12:50 36.6 106 20 108/75 (86) 98 Room Air 10/16/17 12:43 36.9 106 18 119/85 (96) 98 Nasal Cannula 2.0 10/16/17 12:35 98 Room Air 10/16/17 12:20 102 18 118/82 98 Nasal Cannula 2 10/16/17 12:10 36.2 102 18 124/82 98 Nasal Cannula 2 10/16/17 12:00 36.2 99 18 110/86 98 Nasal Cannula 2 10/16/17 11:50 36.2 105 18 123/81 96 Nasal Cannula 2 10/16/17 11:40 105 18 114/84 100 Nasal Cannula 2 10/16/17 11:30 106 18 111/78 98 Oxymask 10 10/16/17 11:24 103 18 118/88 100 Oxymask 10 10/16/17 11:18 36.1 118 18 120/81 100 Oxymask 10 Laboratory Results 24 Hours: Test 10/17/17 07:58 Hematocrit 39.0 % Hemoglobin 13.4 g/dL Assessment & Plan Assessment: POD #1 s/p Incision and Drainage Right 4th Ring Finger extensor tendon and PIP joint Plan: Dressing changed today. ROM as tolerated with the right hand and wrist. Continue IV antibiotics. Patient has improved greatly and will be ready for d/c when appropriate antibiotic choice is made. Since the infection was into the PIP joint, the patient may require 6 wks of IV antibiotics. Will defer to medicine service for PICC line and antibiotic choice. Cultures pending. Discharge Planning Discharge Planning: uncertain
[2017-10-17] MEDS: PANTOprazole SOD 40 MG TAB PO SCH (09:46)
[2017-10-17] MEDS: LOSARTAN POTASSIUM 50 MG TAB PO SCH (09:46)
[2017-10-17] MEDS: VENLAFAXINE HCL XR 75 MG CAPXR PO SCH (09:47)
[2017-10-17] MEDS: POTASSIUM CHLORIDE 20 MEQ TABCR PO SCH (09:47)
[2017-10-17] MEDS: AMLODIPINE BESYLATE 5 MG TAB PO SCH (09:47)
[2017-10-17] MEDS: ATORVASTATIN 20 MG TAB PO SCH (09:47)
[2017-10-17] MEDS: METHYLPHENIDATE HCL 10 MG TAB PO SCH ×2 (10:18→20:00)
[2017-10-17] MEDS: SODIUM CHLORIDE 0.9% 1000ML 1,000 ML IV SCH ×2 (10:19→10:20)
--- NOTE | 2017-10-17 11:48 | Progress Note ---
Medicine Progress Note Date & Time of Visit: Oct 17, 2017 at 11:48. Subjective seen resting in bed, comfortable in good spirits right hand pain and swelling continues to improve can move fingers/hand well no fever/chills no other symptoms Objective Last 8 Hrs Date Time Temp Pulse Resp B/P (MAP) Pulse Ox O2 Delivery O2 Flow Rate FiO2 10/17/17 10:31 Room Air 10/17/17 07:53 36.6 84 22 143/99 (114) 98 Room Air Physical Exam: General- oriented x 3, not in distress, speaks in sentences with no effort Eyes- anicteric Neck- no JVD Lungs- clear breath sounds bilaterally, no rales/wheezes Heart- regular rhythm; no murmur, normal rate Abdomen- normal bowel sounds, soft, nontender Extremities- Right Hand: right ring finger with sutures in place, mild edema, no discharge erythema resolving can move all fingers well no pretibial edema, no calf tenderness Neuro- alert, oriented x 3; no gross focal neurologic deficit Skin- warm & dry Laboratory Results: Last 24 Hours Test 10/17/17 07:58 White Blood Count 13.28 K/uL Red Blood Count 4.62 M/uL Hemoglobin 13.4 g/dL Hematocrit 39.0 % Mean Corpuscular Volume 84.4 fL Mean Corpuscular Hemoglobin 29.0 pg Mean Corpuscular Hemoglobin Concent 34.4 g/dl RDW Standard Deviation 44.9 fL RDW Coefficient of Variation 14.5 % Platelet Count 225 K/uL Mean Platelet Volume 9.9 fL Sodium Level 142 mmol/L Potassium Level 3.7 mmol/L Chloride Level 111 mmol/L Carbon Dioxide Level 25 mmol/L Anion Gap 6.0 mmol/L Blood Urea Nitrogen 9 mg/dl Creatinine 0.91 mg/dl Est Creatinine Clear Calc Drug Dose 157.0 ml/min Estimated GFR () 117.5 Estimated GFR (Non- 101.4 BUN/Creatinine Ratio 10.3 Random Glucose 114 mg/dl Calcium Level 8.4 mg/dl Assessment & Plan RIGHT RING FINGER, HAND CELLULITIS failed out pt therapy started form itching at knuckle of rt hand , pain and swelling gradually increased - Xray of the finger: IMPRESSION: 1. Old cortical fracture tuft distal phalanx. 2. Small avulsion base middle phalanx of uncertain age. 3. Soft tissue edema. - s/p I&D 10/16/17 Drainage cultures: pending - remains afebrile, leukocytosis resolved lactic acidosis resolved - blood cultures negative - continue Vanco and ZOsyn will consult ID - appreciate Ortho Consult Hypokalemia - replaced and monitor HTN : continue Amlodipine, Losartan hold HCTZ HYPERLIPIDEMIA : on stain DEPRESSION /ADHD cont Effexor and Ritalin FULL CODE DVT PROPHYLAXIS : low risk scd and teds ambulate DISPOSITION : anticipate d/c home when cleared by Ortho Current Inpatient Medications: Current Inpatient Medications Medications (Trade) Dose Ordered Sig/Carlos Route Start Time Stop Time Status Last Admin Dose Admin Amlodipine Besylate (Norvasc Tab) 2.5 mg DAILY PO 10/15/17 08:00 11/14/17 08:59 10/17/17 09:47 2.5 MG Atorvastatin Calcium (Lipitor Tab) 20 mg DAILY PO 10/15/17 08:00 11/14/17 08:59 10/17/17 09:47 20 MG Oxycodone/ Acetaminophen (Percocet 5-325mg Tab) 1 tab Q4H PRN PO 10/14/17 15:15 10/28/17 15:14 10/15/17 22:36 1 TAB Venlafaxine HCl (effeXOR EXTENDED REL CAP) 75 mg DAILY PO 10/15/17 08:00 11/14/17 08:59 10/17/17 09:47 75 MG Pantoprazole Sodium (Protonix Tab) 40 mg DAILY PO 10/15/17 08:00 11/14/17 08:59 10/17/17 09:46 40 MG Methylphenidate HCl (Ritalin Tab) 40 mg BID PO 10/14/17 20:00 11/13/17 20:59 10/17/17 10:18 40 MG Acetaminophen (Tylenol Tab) 650 mg Q4H PRN PO 10/14/17 16:45 11/13/17 16:44 10/14/17 19:32 650 MG Al Hydrox/Mg Hydrox/Simethicone (Maalox Max Susp) 15 ml Q4H PRN PO 10/14/17 16:45 11/13/17 16:44 Magnesium Hydroxide (Milk Of Magnesia Susp) 30 ml Q6H PRN PO 10/14/17 16:45 11/13/17 16:44 Polyethylene (Miralax Powder Packet) 17 gm DAILY PRN PO 10/14/17 16:45 11/13/17 16:44 Ondansetron HCl (Zofran Inj) 4 mg Q6H PRN IV 10/14/17 16:45 11/13/17 16:44 Miscellaneous Information (Consult) 1 ea UD PRN N/A 10/14/17 17:15 11/13/17 17:14 Miscellaneous (Iv Fluids Completed) 1 ea PRN PRN N/A 10/14/17 19:00 10/14/18 18:59 Vancomycin HCl 1500 mg/Sodium Chloride 530 ml @ 200 mls/hr Q8H IV 10/15/17 04:00 10/25/17 03:59 10/17/17 03:41 200 MLS/HR Potassium Chloride (Klor-Con Tab) 40 meq DAILY PO 10/16/17 08:00 11/15/17 07:59 10/17/17 09:47 40 MEQ Miscellaneous Information (Consult) 1 ea UD N/A 10/15/17 09:02 11/14/17 09:01 Losartan Potassium (coZAAR TAB) 100 mg QAM PO 10/16/17 08:00 11/15/17 07:59 10/17/17 09:46 100 MG Piperacillin Sod/ Tazobactam Sod 4.5 gm/Dextrose 120 ml @ 30 mls/hr Q8H IV 10/15/17 18:00 10/25/17 05:59 10/17/17 09:48 30 MLS/HR Gadobutrol (Gadavist) 15 mmol UD PRN IV 10/15/17 14:15 10/19/17 14:14
[2017-10-17 14:23] VITALS: BP 133/88; PULSE 76; TEMP 36.9; O2SAT 97
[2017-10-17 16:00] VITALS: O2SAT 97
--- NOTE | 2017-10-17 16:21 | Medical Consult ---
Consultation Date of Consultation: Oct 17, 2017. Attending Physician: Markus Mayfield MD Reason for Consultation: Right hand tenosynovitis History of Present Illness 47-year-old male with history of eczema, was in usual state of health until several days prior to admission when he noticed cephalexin with lesions on his right 4th finger. Subsequently developed pustules then increasing redness, swelling, and pain with decreased ability to flex hand. Ultimately came to the emergency department where is found to have evidence of significant infection, with CT scan, read by me, showing evidence of Kristal synovitis. He has now undergone operative debridement. He is feeling significantly improved with a decrease in erythema of his arm and hand. Currently afebrile. Operative cultures have been negative. Denies any significant pain. Range of motion improving. Tolerating his antibiotics without apparent difficulty. Past Medical/Surgical History Medical Problems: (1) Cellulitis of finger of right hand Status: Acute (2) Hypokalemia Status: Acute Medical Problems: (1) Eczema Family History Noncontributory Social History Smoking Status: Never Smoker Marital Status: Housing Status: lives with family Allergies Coded Allergies: No Known Allergies (Unverified , 10/14/17) Current Inpatient Medications Current Inpatient Medications Medications (Trade) Dose Ordered Sig/Carlos Route Start Time Stop Time Status Last Admin Dose Admin Amlodipine Besylate (Norvasc Tab) 2.5 mg DAILY PO 10/15/17 08:00 11/14/17 08:59 10/17/17 09:47 2.5 MG Atorvastatin Calcium (Lipitor Tab) 20 mg DAILY PO 10/15/17 08:00 11/14/17 08:59 10/17/17 09:47 20 MG Oxycodone/ Acetaminophen (Percocet 5-325mg Tab) 1 tab Q4H PRN PO 10/14/17 15:15 10/28/17 15:14 10/15/17 22:36 1 TAB Venlafaxine HCl (effeXOR EXTENDED REL CAP) 75 mg DAILY PO 10/15/17 08:00 11/14/17 08:59 10/17/17 09:47 75 MG Pantoprazole Sodium (Protonix Tab) 40 mg DAILY PO 10/15/17 08:00 11/14/17 08:59 10/17/17 09:46 40 MG Methylphenidate HCl (Ritalin Tab) 40 mg BID PO 10/14/17 20:00 11/13/17 20:59 10/17/17 10:18 40 MG Acetaminophen (Tylenol Tab) 650 mg Q4H PRN PO 10/14/17 16:45 11/13/17 16:44 10/14/17 19:32 650 MG Al Hydrox/Mg Hydrox/Simethicone (Maalox Max Susp) 15 ml Q4H PRN PO 10/14/17 16:45 11/13/17 16:44 Magnesium Hydroxide (Milk Of Magnesia Susp) 30 ml Q6H PRN PO 10/14/17 16:45 11/13/17 16:44 Polyethylene (Miralax Powder Packet) 17 gm DAILY PRN PO 10/14/17 16:45 11/13/17 16:44 Ondansetron HCl (Zofran Inj) 4 mg Q6H PRN IV 10/14/17 16:45 11/13/17 16:44 Miscellaneous Information (Consult) 1 ea UD PRN N/A 10/14/17 17:15 11/13/17 17:14 Miscellaneous (Iv Fluids Completed) 1 ea PRN PRN N/A 10/14/17 19:00 10/14/18 18:59 Vancomycin HCl 1500 mg/Sodium Chloride 530 ml @ 200 mls/hr Q8H IV 10/15/17 04:00 10/25/17 03:59 10/17/17 12:41 200 MLS/HR Potassium Chloride (Klor-Con Tab) 40 meq DAILY PO 10/16/17 08:00 11/15/17 07:59 10/17/17 09:47 40 MEQ Miscellaneous Information (Consult) 1 ea UD N/A 10/15/17 09:02 11/14/17 09:01 Losartan Potassium (coZAAR TAB) 100 mg QAM PO 10/16/17 08:00 11/15/17 07:59 10/17/17 09:46 100 MG Piperacillin Sod/ Tazobactam Sod 4.5 gm/Dextrose 120 ml @ 30 mls/hr Q8H IV 10/15/17 18:00 10/25/17 05:59 10/17/17 09:48 30 MLS/HR Gadobutrol (Gadavist) 15 mmol UD PRN IV 10/15/17 14:15 10/19/17 14:14 Review of Systems All systems were reviewed and are negative except as per HPI Physical Exam Date Time Temp Pulse Resp B/P (MAP) Pulse Ox O2 Delivery O2 Flow Rate FiO2 10/17/17 14:23 36.9 76 18 133/88 (103) 97 Room Air 10/17/17 10:31 Room Air 10/17/17 07:53 36.6 84 22 143/99 (114) 98 Room Air 10/17/17 00:12 37.1 104 18 111/76 (88) 95 Room Air 10/17/17 00:00 Room Air General Appearance: WD/WN, no apparent distress, + obese Head: normocephalic, atraumatic Eyes: normal inspection, EOMI, sclerae normal ENT: normal ENT inspection, hearing grossly normal, pharynx normal Neck: supple, no adenopathy, thyroid normal, trachea midline Respiratory/Chest: chest non-tender, lungs clear, normal breath sounds, no respiratory distress Cardiovascular: regular rate, rhythm, no gallop, no murmur Abdomen/GI: normal bowel sounds, non tender, soft, no organomegaly Back: normal inspection, no CVA tenderness Extremities/Musculoskelatal: no calf tenderness, normal capillary refill, no pedal edema Neurologic/Psych: alert, normal mood/affect, oriented x 3 Skin: normal color, no rash, + pertinent finding (Right ring finger surgical dressing intact, evidence of resolving cellulitis) Lymphatic: no adenopathy Laboratory Results RUN DATE: 10/17/17 [facility] LAB PAGE 1 RUN TIME: 1332 Specimen Inquiry PATIENT: PUSHPA BRYANT [facility] #: [id number] LOC: [place] # : [id number] AGE/SX: 47/M ROOM: [facility] REG : 10/17/[address]: Markus Mayfield MD : 1970 BED: 2 DIS : STATUS: ADM IN TLOC: SPEC #: [id number] KRYSTAL: 10/16/17 STATUS: RES REQ #: [id number] RECD: 10/16/[address]: Markus Mayfield MD SOURCE: DRAIN-DEEP ENTR: 10/16/[address]: Anabelle Avery, Assigned SPDESC: FINGER, R3 Fransisca Smith M.D. Sensiba, Paul R., M.D. ORDERED: AER/KACEY CULTSMR COMMENTS: SOURCE EXTENSOR TENDON SHEATH RIGHT RING FINGER. Procedure Result Verified Site GRAM STAIN Final 10/16/17-8526 RESULT RARE WBCs SEEN NO ORGANISMS SEEN OR AER/KACEY CULT Preliminary 10/17/17-1331 NO GROWTH TO DATE. Last 24 Hours Test 10/17/17 07:58 White Blood Count 13.28 K/uL Red Blood Count 4.62 M/uL Hemoglobin 13.4 g/dL Hematocrit 39.0 % Mean Corpuscular Volume 84.4 fL Mean Corpuscular Hemoglobin 29.0 pg Mean Corpuscular Hemoglobin Concent 34.4 g/dl RDW Standard Deviation 44.9 fL RDW Coefficient of Variation 14.5 % Platelet Count 225 K/uL Mean Platelet Volume 9.9 fL Sodium Level 142 mmol/L Potassium Level 3.7 mmol/L Chloride Level 111 mmol/L Carbon Dioxide Level 25 mmol/L Anion Gap 6.0 mmol/L Blood Urea Nitrogen 9 mg/dl Creatinine 0.91 mg/dl Est Creatinine Clear Calc Drug Dose 157.0 ml/min Estimated GFR () 117.5 Estimated GFR (Non- 101.4 BUN/Creatinine Ratio 10.3 Random Glucose 114 mg/dl Calcium Level 8.4 mg/dl Patient Name: PUSHPA BRYANT Unit Number: [id number] Dictated: 10/15/171433 Transcribed: 10/15/171433 [employer] Printed Date/Time: [~ rep prt dt]/[~ rep prt tm] [~ rep ct labl] - [~ rep ct ivnm] [facility] [place] [address] Dictated: 10/15/171433 Transcribed: 10/15/171433 [employer] Printed Date/Time: [~ rep prt dt]/[~ rep prt tm] [~ rep ct labl] - [~ rep ct ivnm] RIGHT HAND MRI HISTORY: Right hand swelling. r/o abscess right hand; r/o 4th PIP joint infection TECHNIQUE: Multiplanar multisequence MRI of the right hand was performed both before and after the intravenous administration of contrast. COMPARISON STUDY: Right fourth finger 10/14/2017. FINDINGS: There is extensive subcutaneous edema and enhancement along the dorsum of the hand from the second through fourth metacarpals. This extends proximally into the wrist and distally into the fingers. This is most pronounced within the right finger. There is also fluid and enhancement surrounding the extensor digitorum tendons within the hand and fourth finger. This is consistent with a tenosynovitis. The deep subcutaneous fluid within the dorsum of the hand does not demonstrate a well-defined wall. Therefore, no evidence fracture site this time. Normal marrow signal intensity seen throughout the visualized osseous structures. No evidence for osteomyelitis. IMPRESSION: 1. Extensive subcutaneous edema and enhancement within the dorsum of the wrist, hand, and fingers most pronounced within the right ring finger. This is consistent with a cellulitis. 2. No abscess identified. 3. No evidence for osteomyelitis. 4. There is also fluid and enhancement surrounding the extensor digitorum tendons within the hand and fourth finger. This is consistent with a tenosynovitis and could represent an infectious tenosynovitis Electronically signed by: Travis Mann M.D. 10/15/2017 2:43 PM Dictated Date/Time: 10/15/2017 2:34 PM The status of this report is Signed. Draft = Not yet reviewed or approved by Radiologist. Signed = Reviewed and approved by Radiologist. <AttendingPhy>Markus Mayfield MD</AttendingPhy> <FamilyPhy>No Doctor, Assigned</FamilyPhy> <PrimaryPhy>No Doctor, Assigned</PrimaryPhy> <UnitNumber> [id number]</UnitNumber> <VisitNumber>[id number]</VisitNumber> <PatientName> PUSHPA BRYANT</PatientName> <DateOfBirth>1970</DateOfBirth> <Location> [facility]</Location> <ServiceDate>10/14/17</ServiceDate> <MNE>ESINDI</MNE> < OrderingPhy>Carroll Hooker</OrderingPhy> <OrderingPhyMNE>f rep ord dr burton </OrderingPhyMNE> <DictatingPhyMNE>f rep dict dr burton</DictatingPhyMNE> < CCListMNE>f rep ct fredye</CCListMNE> <AdmittingPhyMNE>f pt admit dr burton</ AdmittingPhyMNE> <AttendingPhyMNE>f pt attend dr burton</AttendingPhyMNE> <ConsultingPhyMNE>f pt consult dr burton</ConsultingPhyMNE> <FamilyPhyMNE>f pt fam dr burton</FamilyPhyMNE> <OtherPhyMNE>f pt other dr burton</OtherPhyMNE> < PrimaryPhyMNE>f pt prim care dr burton</PrimaryPhyMNE> <ReferringPhyMNE>f pt referring dr burton</ReferringPhyMNE> Assessment & Plan Kristal synovitis of the right 4th finger as well as cellulitis of the finger, hand , and lower arm, appears to be improving with current IV antibiotics. Lack of positive culture may be from prior preoperative antibiotics. Would continue current IV antibiotic therapy for now, but may be able to transition to oral antibiotics in the next day or so to hopefully avoid sending home with PICC line. Will follow.
[2017-10-17] MEDS: OXYCODONE/ACETAMINOPHEN 5-325 TAB PO PRN (18:34)
[2017-10-17] MEDS ORDERED: VANCOMYCIN TROUGH ONE (19:30)
--- NOTE | 2017-10-17 20:36 | Pharmacy Progress Note ---
Pharmacy Abx Dose Short Note Date of Service Oct 17, 2017. Assessment & Plan Assessment 47 year old male receiving Vancomycin + Zosyn IV for treatment of hand/arm cellulitis. * today is day # 4 of antimicrobial therapy * cultures reported no growth to date Plan Vancomycin * Trough level of 17 mcg/mL is therapeutic * Continue dose of 1500 mg IV every 8 hours * Goal trough level : 15-20 mcg/mL Zosyn - continue current dose of 4.5 g IV every 8 hours Pharmacy will continue to follow and will adjust dose/frequency as necessary. Thank you.
[2017-10-17 23:43] VITALS: BP 147/98; PULSE 69; TEMP 36.8; O2SAT 96
[2017-10-18] MEDS: PIPERACILL/TAZOBAC IV 4.5 GM in DEXTROSE 5% 100ML IV SCH ×2 (01:48→09:49)
[2017-10-18] MEDS: OXYCODONE/ACETAMINOPHEN 5-325 TAB PO PRN (01:51)
[2017-10-18] MEDS: VANCOMYCIN INJ 1,500 MG in SODIUM CHLORIDE 0.9% 500ML 500 ML IV SCH ×2 (04:21→12:30)
[2017-10-18 06:46] LABS: HEMATOCRIT 41.9 % (42-52); HEMOGLOBIN 14.4 g/dL (14.0-18.0); MEAN CORPUSCULAR HEMOGLOBIN 29.2 pg (25-34); MEAN CORPUSCULAR HGB CONC 34.4 g/dl (32-36); MEAN PLATELET VOLUME 9.9 fL (7.4-10.4); PLATELET COUNT 221 K/uL (130-400); RED CELL DISTRIBUTION WIDTH CV 14.7 % (11.5-14.5); RED CELL DISTRIBUTION WIDTH SD 45.8 fL (36.4-46.3); WHITE BLOOD COUNT 9.08 K/uL (4.8-10.8)
[2017-10-18 07:16] LABS: HEMOGLOBIN A1C 5.5 % (4.5-5.6)
[2017-10-18 07:20] LABS: CALCIUM 8.6 mg/dl (8.5-10.1); CREATININE 1.14 mg/dl (0.60-1.40); POTASSIUM 3.4 mmol/L (3.5-5.1)
[2017-10-18 07:32] VITALS: BP 138/88; PULSE 67; TEMP 36.5; O2SAT 98
--- NOTE | 2017-10-18 07:58 | Anesthesiology Progress Note ---
Anesthesia Post Op Note Date & Time Oct 18, 2017 at 07:58 Vital Signs Pain Intensity: 6.0 Vital Signs Past 12 Hours Date Time Temp Pulse Resp B/P (MAP) Pulse Ox O2 Delivery O2 Flow Rate FiO2 10/18/17 07:32 36.5 67 18 138/88 (105) 98 Room Air 10/18/17 00:05 Room Air 10/17/17 23:43 36.8 69 18 147/98 (114) 96 Room Air Notes Mental Status: alert / awake / arousable, participated in evaluation Pt Amnestic to Procedure: Yes Nausea / Vomiting: adequately controlled Pain: adequately controlled Airway Patency, RR, SpO2: stable & adequate BP & HR: stable & adequate Hydration State: stable & adequate Anesthetic Complications: no major complications apparent
[2017-10-18] MEDS: LOSARTAN POTASSIUM 50 MG TAB PO SCH (09:09)
[2017-10-18] MEDS: VENLAFAXINE HCL XR 75 MG CAPXR PO SCH (09:10)
[2017-10-18] MEDS: AMLODIPINE BESYLATE 5 MG TAB PO SCH (09:10)
[2017-10-18] MEDS: POTASSIUM CHLORIDE 20 MEQ TABCR PO SCH (09:10)
[2017-10-18] MEDS: ATORVASTATIN 20 MG TAB PO SCH (09:11)
[2017-10-18] MEDS: PANTOprazole SOD 40 MG TAB PO SCH (09:11)
[2017-10-18] MEDS: METHYLPHENIDATE HCL 10 MG TAB PO SCH (09:47)
[2017-10-18 09:54] VITALS: O2SAT 97
--- NOTE | 2017-10-18 10:14 | Progress Note ---
Medicine Progress Note Date & Time of Visit: Oct 18, 2017 at 10:07. Subjective sitting up in bed, in good spirits comfortable states hand continues to appear and feel improved minimal discomfort on the ring finger no other symptoms feels ok overall Objective Last 8 Hrs Date Time Temp Pulse Resp B/P (MAP) Pulse Ox O2 Delivery O2 Flow Rate FiO2 10/18/17 09:54 97 Room Air 10/18/17 07:32 36.5 67 18 138/88 (105) 98 Room Air Physical Exam: General- oriented x 3, not in distress, speaks in sentences with no effort Eyes- anicteric Neck- no JVD Lungs- clear BS bilaterally Heart- regular rhythm; no murmur, normal rate Abdomen- normal bowel sounds, soft, nontender Extremities- Right Hand: right ring finger with sutures in place, mild edema, no discharge, continue to improve right hand edema and erythema resolved can move all fingers well no pretibial edema, no calf tenderness Neuro- alert, oriented x 3; no gross focal neurologic deficit Skin- warm & dry Laboratory Results: Last 24 Hours Test 10/17/17 19:18 10/18/17 06:16 Vancomycin Level Trough 17.0 mcg/ml White Blood Count 9.08 K/uL Red Blood Count 4.93 M/uL Hemoglobin 14.4 g/dL Hematocrit 41.9 % Mean Corpuscular Volume 85.0 fL Mean Corpuscular Hemoglobin 29.2 pg Mean Corpuscular Hemoglobin Concent 34.4 g/dl RDW Standard Deviation 45.8 fL RDW Coefficient of Variation 14.7 % Platelet Count 221 K/uL Mean Platelet Volume 9.9 fL Sodium Level 144 mmol/L Potassium Level 3.4 mmol/L Chloride Level 109 mmol/L Carbon Dioxide Level 28 mmol/L Anion Gap 7.0 mmol/L Blood Urea Nitrogen 8 mg/dl Creatinine 1.14 mg/dl Est Creatinine Clear Calc Drug Dose 125.3 ml/min Estimated GFR () 89.5 Estimated GFR (Non- 77.2 BUN/Creatinine Ratio 6.9 Random Glucose 86 mg/dl Calcium Level 8.6 mg/dl Assessment & Plan RIGHT RING FINGER, HAND CELLULITIS failed out pt therapy started form itching at knuckle of rt hand , pain and swelling gradually increased - Xray of the finger: IMPRESSION: 1. Old cortical fracture tuft distal phalanx. 2. Small avulsion base middle phalanx of uncertain age. 3. Soft tissue edema. - s/p I&D 10/16/17 Drainage cultures: negative Blood cultures: negative - remains afebrile, leukocytosis resolved lactic acidosis resolved - continue Vanco and ZOsyn will consult ID, possible transition to oral antibiotics , possible d/c today ff up with Ortho in [place], [place] - appreciate Ortho Consult Hypokalemia - replace and monitor HTN : continue Amlodipine, Losartan hold HCTZ HYPERLIPIDEMIA : on stain DEPRESSION /ADHD cont Effexor and Ritalin FULL CODE DVT PROPHYLAXIS : low risk scd and teds ambulate DISPOSITION : anticipate d/c home when cleared by Ortho and ID today Current Inpatient Medications: Current Inpatient Medications Medications (Trade) Dose Ordered Sig/Carlos Route Start Time Stop Time Status Last Admin Dose Admin Amlodipine Besylate (Norvasc Tab) 2.5 mg DAILY PO 10/15/17 08:00 11/14/17 08:59 10/18/17 09:10 2.5 MG Atorvastatin Calcium (Lipitor Tab) 20 mg DAILY PO 10/15/17 08:00 11/14/17 08:59 10/18/17 09:11 20 MG Oxycodone/ Acetaminophen (Percocet 5-325mg Tab) 1 tab Q4H PRN PO 10/14/17 15:15 10/28/17 15:14 10/18/17 01:51 1 TAB Venlafaxine HCl (effeXOR EXTENDED REL CAP) 75 mg DAILY PO 10/15/17 08:00 11/14/17 08:59 10/18/17 09:10 75 MG Pantoprazole Sodium (Protonix Tab) 40 mg DAILY PO 10/15/17 08:00 11/14/17 08:59 10/18/17 09:11 40 MG Methylphenidate HCl (Ritalin Tab) 40 mg BID PO 10/14/17 20:00 11/13/17 20:59 10/18/17 09:47 40 MG Acetaminophen (Tylenol Tab) 650 mg Q4H PRN PO 10/14/17 16:45 11/13/17 16:44 10/14/17 19:32 650 MG Al Hydrox/Mg Hydrox/Simethicone (Maalox Max Susp) 15 ml Q4H PRN PO 10/14/17 16:45 11/13/17 16:44 Magnesium Hydroxide (Milk Of Magnesia Susp) 30 ml Q6H PRN PO 10/14/17 16:45 11/13/17 16:44 Polyethylene (Miralax Powder Packet) 17 gm DAILY PRN PO 10/14/17 16:45 11/13/17 16:44 Ondansetron HCl (Zofran Inj) 4 mg Q6H PRN IV 10/14/17 16:45 11/13/17 16:44 Miscellaneous Information (Consult) 1 ea UD PRN N/A 10/14/17 17:15 11/13/17 17:14 Miscellaneous (Iv Fluids Completed) 1 ea PRN PRN N/A 10/14/17 19:00 10/14/18 18:59 Vancomycin HCl 1500 mg/Sodium Chloride 530 ml @ 200 mls/hr Q8H IV 10/15/17 04:00 10/25/17 03:59 10/18/17 04:21 200 MLS/HR Potassium Chloride (Klor-Con Tab) 40 meq DAILY PO 10/16/17 08:00 11/15/17 07:59 10/18/17 09:10 40 MEQ Miscellaneous Information (Consult) 1 ea UD N/A 10/15/17 09:02 11/14/17 09:01 Losartan Potassium (coZAAR TAB) 100 mg QAM PO 10/16/17 08:00 11/15/17 07:59 10/18/17 09:09 100 MG Piperacillin Sod/ Tazobactam Sod 4.5 gm/Dextrose 120 ml @ 30 mls/hr Q8H IV 10/15/17 18:00 10/25/17 05:59 10/18/17 09:49 30 MLS/HR Gadobutrol (Gadavist) 15 mmol UD PRN IV 10/15/17 14:15 10/19/17 14:14
--- NOTE | 2017-10-18 13:41 | Orthopedic Progress Note ---
Orthopedic Progress Note Date of Service Oct 18, 2017. Subjective Post OP Day: 2 Reports: feeling well, Denies: complaints Additional Notes: moving finger a little more each day. not quite full rom yet. denies pain at this time. Objective N/V intact, capillary refill less than 2 sec., incision C/D/I, A&O x3 wound benign. no drainage. erythema decreasing. swelling decreasing. rom much better since I last saw him. Date Time Temp Pulse Resp B/P (MAP) Pulse Ox O2 Delivery O2 Flow Rate FiO2 10/18/17 09:54 97 Room Air 10/18/17 07:32 36.5 67 18 138/88 (105) 98 Room Air 10/18/17 00:05 Room Air 10/17/17 23:43 36.8 69 18 147/98 (114) 96 Room Air 10/17/17 16:00 97 Room Air 10/17/17 14:23 36.9 76 18 133/88 (103) 97 Room Air Laboratory Results 24 Hours: Test 10/18/17 06:16 Hematocrit 41.9 % Hemoglobin 14.4 g/dL Assessment & Plan Assessment: POD #2 s/p Incision and Drainage Right 4th Ring Finger extensor tendon and PIP joint Plan: Continues to improve Antibx as per Med/ID teams No further surgery needed Plan for f/u in [facility] Planning Pain Management: Percocet Discharge Planning Discharge Planning: uncertain
--- NOTE | 2017-10-18 13:44 | Consultant Recommendations ---
Banquet Set Up Person Recommendations Date of Service Oct 18, 2017. Banquet Set Up Person Recommendations Daily dressing changes. Use a waterproof covering over the hand for showering for the next 2-3 days. If the wound remains dry without drainage, you may then get the wound wet. No tub baths. Do not soak the wound. You may leave the wound to the open air after the first 5-7 days from your surgery if it remains without drainage. Do gentle range of motion exercises with the finger regularly. F/U with an Orthopedic doctor in your area 10-14 days from the day of surgery.
[2017-10-18] MEDS ORDERED: SULF800T23 PO (14:47)
[2017-10-18] MEDS ORDERED: MCRK20 PO (14:47)
[2017-10-18] MEDS ORDERED: LEVO1TAB34 PO (14:47)
[2017-10-18] MEDS ORDERED: TRAM-10 PO (14:47)
--- NOTE | 2017-10-18 14:52 | Discharge Instructions ---
Discharge Instructions Date of Service Oct 18, 2017. Admission Reason for Admission: Cellulitis Of Finger In Right Hand Discharge Discharge Diagnosis / Problem: CELLULITIS, RING FINGER, RIGHT HAND Discharge Goals Goal(s): Diagnostic testing, Therapeutic intervention Activity Recommendations Activity Limitations: resume your previous activity Lifting Limitations: until after follow-up appointment (NO LIFTING ON THE RIGHT HAND) Driving or Machine Use: DO NOT DRIVE WHILE TAKING TRAMADOL. . Instructions / Follow-Up Instructions / Follow-Up PLEASE REFER TO YOUR NEW MEDICATION LIST AND FOLLOW INSTRUCTIONS CAREFULLY. CALL PRIMARY CARE PHYSICIAN OR ORTHOPEDIC SURGEON IF YOU HAVE WORSENING OF SYMPTOMS, INCREASING PAIN, SWELLING, REDNESS, TENDERNESS ON THE RING FINGER OR YOUR HAND. FOLLOW THE INSTRUCTIONS GIVEN BY THE ORTHOPEDIC SURGEON BELOW. FOLLOW UP WITH YOUR PRIMARY CARE PHYSICIAN IN 3-5 DAYS. Current Hospital Diet Patient's current hospital diet: AHA Diet (Heart Healthy) Discharge Diet Recommended Diet: AHA Diet (Heart Healthy) Procedures Procedures Performed: Incision and Drainage Right 4th Ring Finger extensor tendon and PIP joint Pending Studies Studies pending at discharge: no Laboratory Results Hemoglobin A1c Test 10/17/17 07:58 Range/Units Estimated Average Glucose 111 mg/dl Hemoglobin A1c 5.5 4.5-5.6 % Medical Emergencies . Who to Call and When: Medical Emergencies: If at any time you feel your situation is an emergency, please call 911 immediately. . Non-Emergent Contact Non-Emergency issues call your: Primary Care Provider, Surgeon Call Non-Emergent contact if: you have a fever, your pain is not controlled, your pain is worsening, wound has increased drainage, wound has increased redness, wound has increased pain, you have any medication questions . . "Provider Documentation" section prepared by Markus Mayfield. . [employer] Librarian Recommendations [employer] Librarian Recommendations: ORTHOPEDIC SURGEON INSTRUCTIONS: Daily dressing changes. Use a waterproof covering over the hand for showering for the next 2-3 days. If the wound remains dry without drainage, you may then get the wound wet. No tub baths. Do not soak the wound. You may leave the wound to the open air after the first 5-7 days from your surgery if it remains without drainage. Do gentle range of motion exercises with the finger regularly. F/U with an Orthopedic doctor in your area 10-14 days from the day of surgery. VTE Core Measure Inpt VTE Proph given/why not?: T.E.D. Stockings, SCD's [place] Drug Monitoring Program Search Results: patient reviewed within database
--- NOTE | 2017-10-18 14:59 | Discharge Summary ---
Discharge Summary Date of Service Oct 18, 2017. Discharge Summary Admission Date: Oct 14, 2017 Discharge Date: Oct 18, 2017 Discharge Disposition: Home Principal Diagnosis: RIGHT RING FINGER, AND HAND CELLULITIS Secondary Diagnoses/Problems: PLEASE REFER TO HOSPITAL COURSE BELOW. Procedures: Incision and Drainage Right 4th Ring Finger extensor tendon and PIP joint RIGHT HAND MRI HISTORY: Right hand swelling. r/o abscess right hand; r/o 4th PIP joint infection TECHNIQUE: Multiplanar multisequence MRI of the right hand was performed both before and after the intravenous administration of contrast. COMPARISON STUDY: Right fourth finger 10/14/2017. FINDINGS: There is extensive subcutaneous edema and enhancement along the dorsum of the hand from the second through fourth metacarpals. This extends proximally into the wrist and distally into the fingers. This is most pronounced within the right finger. There is also fluid and enhancement surrounding the extensor digitorum tendons within the hand and fourth finger. This is consistent with a tenosynovitis. The deep subcutaneous fluid within the dorsum of the hand does not demonstrate a well-defined wall. Therefore, no evidence fracture site this time. Normal marrow signal intensity seen throughout the visualized osseous structures. No evidence for osteomyelitis. IMPRESSION: 1. Extensive subcutaneous edema and enhancement within the dorsum of the wrist, hand, and fingers most pronounced within the right ring finger. This is consistent with a cellulitis. 2. No abscess identified. 3. No evidence for osteomyelitis. 4. There is also fluid and enhancement surrounding the extensor digitorum tendons within the hand and fourth finger. This is consistent with a tenosynovitis and could represent an infectious tenosynovitis Electronically signed by: Travis Mann M.D. 10/15/2017 2:43 PM Consultations: Orthopedic Surgeon Dr. Argueta, Infectious Disease Dr. Easton Pending Studies/Follow-Up: Please refer to hospital course below. Medication Reconciliation New Medications: Levofloxacin (Levaquin) 500 Mg Tab 500 MG PO DAILY for 14 Days, #14 TAB 0 Refills Sulfa/Trimethoprim (Bactrim Ds 800MG/160MG) Tab 1 TAB PO BID for 14 Days, #28 TABS 0 Refills Tramadol (Ultram) 50 Mg Tab 50 MG PO Q6H PRN for Pain, #10 TABS 0 Refills Potassium Chloride (Klor-Con M20) 20 Meq Tabcr 40 MEQ PO DAILY for 5 Days, #5 TAB 0 Refills Continued Medications: Amlodipine (Norvasc) 2.5 Mg Tab 2.5 MG PO DAILY, TAB Atorvastatin (Lipitor) 20 Mg Tab 20 MG PO DAILY, TAB Hctz/Losartan (Hyzaar 25MG/100MG) Tab 1 TAB PO DAILY, TAB Lansoprazole (Prevacid) 30 Mg Capcr 30 MG PO DAILY, CAP Methylphenidate (Ritalin) 20 Mg Tab 2 TAB PO BID, TAB Venlafaxine Hcl (Venlafaxine Extended Rel) 75 Mg Cap 75 MG PO DAILY, CAP Discontinued Medications: Amoxicillin & Pot Clavulanate (Augmentin 875-125 mg) 1 Tab Tab 1 TAB PO BID for 10 Days, #20 TAB Oxycodone/Acetaminophen 5MG/325MG (Percocet 5MG/325MG) Tab 1-2 TAB PO Q4H PRN for Pain, #14 TAB Admission Information HPI (per Admitting provider): 47 yo [place] from [place] with medical hx of HTN , hyperlipidemia , ADHD visiting [facility] visit with his Son and 2 days back ( Wednesday ) he had small pimple with itching on the rt hand 4 th finger at interphalangeal joint pt reports he has Eczema , get occasion itching on fingers which some times leads to blisters in next 12 hrs -he had throbbing pain on his finger , with swelling and redness no fever or chills came to ER yesterday was discharged with PO Augmentin and PRN Percocet for pain this morning pain on his finger and swelling progressively increased to midway of his rt hand no fever or chills denies of any tick bite lab shows mild leukocytosis of 11 K , elevated ESR , C reactive protein Lactic acid elevated > 2 pt will be admitted to medical floor for IV Abx and failed out pt treatment Physical Exam (per Admitting): General Appearance: no apparent distress Head: normocephalic, atraumatic Eyes: normal inspection, PERRL, EOMI, sclerae normal ENT: normal ENT inspection Neck: thyroid normal, no JVD, no carotid bruits, trachea midline Respiratory/Chest: lungs clear, normal breath sounds, no respiratory distress Cardiovascular: regular rate, rhythm, no edema, no JVD Abdomen/GI: normal bowel sounds, non tender, soft Extremities/Musculoskelatal: normal inspection, no calf tenderness, normal capillary refill, no pedal edema, + pertinent finding (rt 4th finger swelling / increased warmth/tenderness , extending rt mid hand, no falctuation noted ) Neurologic/Psych: no motor/sensory deficits, alert, oriented x 3 Hospital Course RIGHT RING FINGER, HAND CELLULITIS started form itching at knuckle of rt hand , pain and swelling gradually increased - Xray of the finger: IMPRESSION: 1. Old cortical fracture tuft distal phalanx. 2. Small avulsion base middle phalanx of uncertain age. 3. Soft tissue edema. - Right Hand MRI: 1. Extensive subcutaneous edema and enhancement within the dorsum of the wrist, hand, and fingers most pronounced within the right ring finger. This is consistent with a cellulitis. 2. No abscess identified. 3. No evidence for osteomyelitis. 4. There is also fluid and enhancement surrounding the extensor digitorum tendons within the hand and fourth finger. This is consistent with a tenosynovitis and could represent an infectious tenosynovitis - Consulted Ortho: Dr. Argueta s/p I&D 10/16/17 Drainage cultures: negative Blood cultures: negative - remained afebrile, leukocytosis resolved lactic acidosis resolved - given Vancomycin and ZOsyn IV consulted with Dr. Easton- ID, recommend oral Bactrim and Levaquin x 14 days, ff up with PCP ff up with Ortho in [place], [place] in 10-14 days - appreciate Ortho Consult Hypokalemia - K 3.4 - given 5 days of K 40meqs po - repeat K level on ff up HTN : continue Amlodipine, Losartan, HCTZ HYPERLIPIDEMIA : on stain DEPRESSION /ADHD cont Effexor and Ritalin DISPOSITION : d/c home today ff up with PCP in 3-5 days ff up with Ortho in 10-14 days. Total time spent on discharge = 35 minutes This includes examination of the patient, discharge planning, medication reconciliation, and communication with other providers. Discharge Instructions DI: Medical v4 Discharge Instructions Date of Service Oct 18, 2017. Admission Reason for Admission: Cellulitis Of Finger In Right Hand Discharge Discharge Diagnosis / Problem: CELLULITIS, RING FINGER, RIGHT HAND Discharge Goals Goal(s): Diagnostic testing, Therapeutic intervention Activity Recommendations Activity Limitations: resume your previous activity Lifting Limitations: until after follow-up appointment (NO LIFTING ON THE RIGHT HAND) Driving or Machine Use: DO NOT DRIVE WHILE TAKING TRAMADOL. . Instructions / Follow-Up Instructions / Follow-Up PLEASE REFER TO YOUR NEW MEDICATION LIST AND FOLLOW INSTRUCTIONS CAREFULLY. CALL PRIMARY CARE PHYSICIAN OR ORTHOPEDIC SURGEON IF YOU HAVE WORSENING OF SYMPTOMS, INCREASING PAIN, SWELLING, REDNESS, TENDERNESS ON THE RING FINGER OR YOUR HAND. FOLLOW THE INSTRUCTIONS GIVEN BY THE ORTHOPEDIC SURGEON BELOW. FOLLOW UP WITH YOUR PRIMARY CARE PHYSICIAN IN 3-5 DAYS. Current Hospital Diet Patient's current hospital diet: AHA Diet (Heart Healthy) Discharge Diet Recommended Diet: AHA Diet (Heart Healthy) Procedures Procedures Performed: Incision and Drainage Right 4th Ring Finger extensor tendon and PIP joint Pending Studies Studies pending at discharge: no Laboratory Results Hemoglobin A1c Test 10/17/17 07:58 Range/Units Estimated Average Glucose 111 mg/dl Hemoglobin A1c 5.5 4.5-5.6 % Medical Emergencies . Who to Call and When: Medical Emergencies: If at any time you feel your situation is an emergency, please call 911 immediately. . Non-Emergent Contact Non-Emergency issues call your: Primary Care Provider, Surgeon Call Non-Emergent contact if: you have a fever, your pain is not controlled, your pain is worsening, wound has increased drainage, wound has increased redness, wound has increased pain, you have any medication questions . . "Provider Documentation" section prepared by Markus Mayfield. . Auto Wash Buffer Recommendations Auto Wash Buffer Recommendations: ORTHOPEDIC SURGEON INSTRUCTIONS: Daily dressing changes. Use a waterproof covering over the hand for showering for the next 2-3 days. If the wound remains dry without drainage, you may then get the wound wet. No tub baths. Do not soak the wound. You may leave the wound to the open air after the first 5-7 days from your surgery if it remains without drainage. Do gentle range of motion exercises with the finger regularly. F/U with an Orthopedic doctor in your area 10-14 days from the day of surgery. VTE Core Measure Inpt VTE Proph given/why not?: CRISTA Leslie[place] Drug Monitoring Program Search Results: patient reviewed within database
--- NOTE | 2017-10-18 15:20 | Infectious Disease Progress Nt ---
Progress Note Date of Service Oct 18, 2017. Subjective Pt evaluation today including: conversation w/ patient, conversation w/ family , physical exam, chart review, lab review, review of studies, conversation w/ family consultant, review of inpatient medication list Patient offering no new complaints today. No significant pain in his right hand. Remains afebrile. Has been tolerating antibiotics without apparent difficulty. Operative cultures negative to date. All Other Systems: Reviewed and Negative Medications Current Inpatient Medications Medications (Trade) Dose Ordered Sig/Carlos Route Start Time Stop Time Status Last Admin Dose Admin Amlodipine Besylate (Norvasc Tab) 2.5 mg DAILY PO 10/15/17 08:00 11/14/17 08:59 10/18/17 09:10 2.5 MG Atorvastatin Calcium (Lipitor Tab) 20 mg DAILY PO 10/15/17 08:00 11/14/17 08:59 10/18/17 09:11 20 MG Oxycodone/ Acetaminophen (Percocet 5-325mg Tab) 1 tab Q4H PRN PO 10/14/17 15:15 10/28/17 15:14 10/18/17 01:51 1 TAB Venlafaxine HCl (effeXOR EXTENDED REL CAP) 75 mg DAILY PO 10/15/17 08:00 11/14/17 08:59 10/18/17 09:10 75 MG Pantoprazole Sodium (Protonix Tab) 40 mg DAILY PO 10/15/17 08:00 11/14/17 08:59 10/18/17 09:11 40 MG Methylphenidate HCl (Ritalin Tab) 40 mg BID PO 10/14/17 20:00 11/13/17 20:59 10/18/17 09:47 40 MG Acetaminophen (Tylenol Tab) 650 mg Q4H PRN PO 10/14/17 16:45 11/13/17 16:44 10/14/17 19:32 650 MG Al Hydrox/Mg Hydrox/Simethicone (Maalox Max Susp) 15 ml Q4H PRN PO 10/14/17 16:45 11/13/17 16:44 Magnesium Hydroxide (Milk Of Magnesia Susp) 30 ml Q6H PRN PO 10/14/17 16:45 11/13/17 16:44 Polyethylene (Miralax Powder Packet) 17 gm DAILY PRN PO 2/22/18 16:45 11/13/17 16:44 Ondansetron HCl (Zofran Inj) 4 mg Q6H PRN IV 10/14/17 16:45 11/13/17 16:44 Miscellaneous Information (Consult) 1 ea UD PRN N/A 10/14/17 17:15 11/13/17 17:14 Miscellaneous (Iv Fluids Completed) 1 ea PRN PRN N/A 10/14/17 19:00 10/14/18 18:59 Vancomycin HCl 1500 mg/Sodium Chloride 530 ml @ 200 mls/hr Q8H IV 10/15/17 04:00 10/25/17 03:59 10/18/17 12:30 200 MLS/HR Potassium Chloride (Klor-Con Tab) 40 meq DAILY PO 10/16/17 08:00 11/15/17 07:59 10/18/17 09:10 40 MEQ Miscellaneous Information (Consult) 1 ea UD N/A 10/15/17 09:02 11/14/17 09:01 Losartan Potassium (coZAAR TAB) 100 mg QAM PO 10/16/17 08:00 11/15/17 07:59 10/18/17 09:09 100 MG Piperacillin Sod/ Tazobactam Sod 4.5 gm/Dextrose 120 ml @ 30 mls/hr Q8H IV 10/15/17 18:00 10/25/17 05:59 10/18/17 09:49 30 MLS/HR Gadobutrol (Gadavist) 15 mmol UD PRN IV 10/15/17 14:15 10/19/17 14:14 Objective Vital Signs Date Time Temp Pulse Resp B/P (MAP) Pulse Ox O2 Delivery O2 Flow Rate FiO2 10/18/17 12:00 Room Air 10/18/17 09:54 97 Room Air 10/18/17 07:32 36.5 67 18 138/88 (105) 98 Room Air 10/18/17 00:05 Room Air 10/17/17 23:43 36.8 69 18 147/98 (114) 96 Room Air 10/17/17 16:00 97 Room Air Physical Exam General Appearance: WD/WN, no apparent distress Eyes: normal inspection, EOMI, sclerae normal ENT: normal ENT inspection, hearing grossly normal, pharynx normal Neck: supple, no adenopathy, thyroid normal, trachea midline Respiratory/Chest: chest non-tender, lungs clear, normal breath sounds, no respiratory distress Cardiovascular: regular rate, rhythm, no gallop, no murmur Abdomen: normal bowel sounds, non tender, soft, no organomegaly Extremities: non-tender, no calf tenderness, normal capillary refill Neurologic/Psychiatric: alert, oriented x 3 Skin: normal color, no rash, + pertinent finding (Right hand cellulitis improved, surgical dressing intact) Lymphatic: no adenopathy Laboratory Results RUN DATE: 10/18/17 [facility] LAB PAGE 1 RUN TIME: 1453 Specimen Inquiry PATIENT: PUSHPA BRYANT LOC: [id number] U # : [id number] AGE/SX: 47/M ROOM: [facility] REG : 10/17/[address]: Markus Mayfield MD : 1970 BED: 2 DIS : STATUS: ADM IN TLOC: SPEC #: [id number] KRYSTAL: 10/16/17 STATUS: RES REQ #: [id number] RECD: 10/16/[address]: Markus Mayfield MD SOURCE: DRAIN-DEEP ENTR: 10/16/17 [facility] DR: Anabelle Avery, Assigned SPDESC: FINGER, R3 Fransisca Smith M.D. Sensiba, Paul R., M.D. ORDERED: AER/KACEY CULTSMR COMMENTS: SOURCE EXTENSOR TENDON SHEATH RIGHT RING FINGER. Procedure Result Verified Site GRAM STAIN Final 10/16/17 RESULT RARE WBCs SEEN NO ORGANISMS SEEN OR AER/KACEY CULT Preliminary 10/18/17 Organism 1 COAG NEG STAPHYLOCOCCUS QUANITY UNABLE TO QUANTITATE SENS NO SENSITIVITY TO FOLLOW Last 24 Hours Test 10/17/17 19:18 10/18/17 06:16 Vancomycin Level Trough 17.0 mcg/ml White Blood Count 9.08 K/uL Red Blood Count 4.93 M/uL Hemoglobin 14.4 g/dL Hematocrit 41.9 % Mean Corpuscular Volume 85.0 fL Mean Corpuscular Hemoglobin 29.2 pg Mean Corpuscular Hemoglobin Concent 34.4 g/dl RDW Standard Deviation 45.8 fL RDW Coefficient of Variation 14.7 % Platelet Count 221 K/uL Mean Platelet Volume 9.9 fL Sodium Level 144 mmol/L Potassium Level 3.4 mmol/L Chloride Level 109 mmol/L Carbon Dioxide Level 28 mmol/L Anion Gap 7.0 mmol/L Blood Urea Nitrogen 8 mg/dl Creatinine 1.14 mg/dl Est Creatinine Clear Calc Drug Dose 125.3 ml/min Estimated GFR () 89.5 Estimated GFR (Non- 77.2 BUN/Creatinine Ratio 6.9 Random Glucose 86 mg/dl Calcium Level 8.6 mg/dl Assessment and Plan Kristal synovitis of the right 4th finger as well as cellulitis of the finger, hand , and lower arm, appears to be improving with current IV antibiotics. Culture growing coagulase negative Staph, significance unclear. Given rapid clinical improvement, think the patient can be transitioned to oral therapy in recommend combination of levofloxacin and Bactrim. Likely in the range of 2 weeks. Patient has follow-up with surgery in primary care physician in [place] in the near future.
[2017-10-18 15:22] VITALS: BP 138/88; PULSE 67; TEMP 36.5; O2SAT 97
[2017-10-18 15:57] VITALS: BP 171/94; PULSE 72; TEMP 36.9; O2SAT 98
== END 2017-10-18 16:00 | disposition home or self-care (01) | DRG 988 ==
LOC: C.EDB 13:19 → C.MS4W 17:21 → ENRESERV 18:06 → OBSVTOIN 10-17 11:58
PROVIDERS: ADMIT Hospitalist; ATTEND Internal Medicine
PROC: 0L970ZZ Drainage of Right Hand Tendon, Open Approach (ICD-10-PCS; principal; 2017-10-16 09:30)
DX: L03.113 Cellulitis of right upper limb (principal); M00.9 Pyogenic arthritis, unspecified; I10 Essential (primary) hypertension; E78.5 Hyperlipidemia, unspecified; F90.9 Attention-deficit hyperactivity disorder, unspecified type; F32.9 Major depressive disorder, single episode, unspecified; M65.88 Other synovitis and tenosynovitis, other site; E87.6 Hypokalemia